=== PATIENT | female | born 1935 | race Hispanic/Latino ===

== ENCOUNTER 2017-11-09 10:37 | Emergency (ER) | payer MEDICARE ==
[~2017-11-09 10:37] MED LIST: AMLO10TA2 PO; ASPI-555 PO; CARV12.511 PO; CARV25TA77 PO; CHOL200012 PO; DOCU240C25 PO; FURO20TA4 PO; LACT1CAP72 PO; LATA2.5D2 OP; LOSA100T29 PO; MECL-111 PO; NITR0.4T50 SL; VITA100049 PO
[2017-11-09] MEDS ORDERED: KETOROLAC TROMETHAMINE 15MG/ML ONE (11:11)
[2017-11-09 11:25] LABS: APPEARANCE,URINE Clear (CLEAR); BILIRUBIN,URINE Negative (NEGATIVE); COLOR,URINE Yellow (YELLOW); GLUCOSE, URINE (UA) Negative (NEGATIVE); KETONES,URINE Negative (NEGATIVE); LEUKOCYTE ESTERASE ,URINE Trace (NEGATIVE); NITRATE,URINE Negative (NEGATIVE); OCCULT BLOOD,URINE Negative (NEGATIVE); PROTEIN,URINE Negative (NEGATIVE); UROBILINOGEN,URINE 0.2 mg/dL (0.2-1.0)
[2017-11-09 11:31] LABS: BACTERIA,URINE Rare /HPF (None Seen); RBC,URINE 0-1 /HPF (0-1); SQUAMOUS EPITHELIAL CELL,UR Rare /LPF (0-2); WBC,URINE 0-1 /HPF (0-1)
[2017-11-09 11:44] LABS: BASOPHILS % (AUTO) 1.4 % (0.0-5.0); EOSINOPHILS % (AUTO) 6.6 % (0.0-8.0); HEMATOCRIT 31.6 % (36-48); LYMPHOCYTES % (AUTO) 25.9 % (21.0-51.0); MEAN CORPUSCULAR HEMOGLOBIN 31.7 pg (27.0-33.0); MEAN CORPUSCULAR HGB CONC 34.6 g/dL (32.0-36.0); MEAN CORPUSCULAR VOLUME 91.6 fL (79-99); MONOCYTES % (AUTO) 6.8 % (3.0-13.0); NEUTROPHILS % (AUTO) 59.3 % (40.0-77.0); PLATELET COUNT (AUTO) 232 K/uL (130-400); RED BLOOD CELL COUNT(AUTO) 3.45 MIL/uL (4.00-5.50); RED CELL DISTRIBUTION WIDTH 14.3 % (11.0-15.5); WHITE BLOOD COUNT (AUTO) 7.6 K/uL (4.8-10.8)
[2017-11-09 11:54] LABS: CREATININE 1.4 mg/dL (0.5-1.5); POTASSIUM 4.1 mmol/L (3.5-5.1)
[2017-11-09] MEDS ORDERED: METHYLPREDNISOLONE SOD SUCC 125MG/2ML VIAL ONE (13:45)
[2017-11-09] MEDS ORDERED: ACETAMINOPHEN 325 MG TAB ONE (13:45)
== END 2017-11-09 14:24 | disposition home or self-care (01) ==
LOC: EDH 10:37
DX: G89.29 Other chronic pain (principal); M54.5 Low back pain; R10.9 Unspecified abdominal pain; E11.9 Type 2 diabetes mellitus without complications; I10 Essential (primary) hypertension; Z88.0 Allergy status to penicillin; Z88.6 Allergy status to analgesic agent; Z88.2 Allergy status to sulfonamides; Z88.1 Allergy status to other antibiotic agents; Z90.49 Acquired absence of other specified parts of digestive tract; Z90.710 Acquired absence of both cervix and uterus; Z98.890 Other specified postprocedural states
CPT/HCPCS: 36415; 72100; 80048; 81001; 85025; 96374; 96375; 99285; J1885; J2930

== ENCOUNTER → 2018-01-03 | Outpatient (CLI) | payer MEDICARE ==
[~2018-01-03] MED LIST changes: +ACET1TAB12 PO; +IOPAMIDOL-370 100 ML VIAL IV ONE; +LEVO250T2 PO; +LUBI24CA2 PO; +OMEP20CA10 PO; +SULF1TAB42 PO; +VIT1TABL75 PO
== END | disposition home or self-care (01) ==
LOC: RAH 08:36
PROVIDERS: ATTEND Internal Medicine Cardiovascular Disease
DX: I71.4 Abdominal aortic aneurysm, without rupture (principal); I72.3 Aneurysm of iliac artery; K55.1 Chronic vascular disorders of intestine; K44.9 Diaphragmatic hernia without obstruction or gangrene; N28.1 Cyst of kidney, acquired; K57.90 Diverticulosis of intestine, part unspecified, without perforation or abscess without bleeding; I70.90 Unspecified atherosclerosis
CPT/HCPCS: 74174; Q9967

== ENCOUNTER 2018-01-09 13:50 | Inpatient (IN) | payer MEDICARE ==
[~2018-01-09] VITALS: Ht 157.5 cm; Wt 80.7 kg
[~2018-01-09 13:50] MED LIST changes: -ACET1TAB12 PO; -IOPAMIDOL-370 100 ML VIAL IV ONE; -LEVO250T2 PO; -LUBI24CA2 PO; -OMEP20CA10 PO; -SULF1TAB42 PO; -VIT1TABL75 PO
[2018-01-09 15:01] LABS: BASOPHILS % (AUTO) 0.1 % (0.0-5.0); HEMATOCRIT 35.1 % (36-48); LYMPHOCYTES % (AUTO) 13.2 % (21.0-51.0); MEAN CORPUSCULAR HEMOGLOBIN 30.8 pg (27.0-33.0); MEAN CORPUSCULAR HGB CONC 33.9 g/dL (32.0-36.0); MEAN CORPUSCULAR VOLUME 90.8 fL (79-99); MONOCYTES % (AUTO) 3.3 % (3.0-13.0); NEUTROPHILS % (AUTO) 83.4 % (40.0-77.0); PLATELET COUNT (AUTO) 244 K/uL (130-400); RED BLOOD CELL COUNT(AUTO) 3.86 MIL/uL (4.00-5.50); RED CELL DISTRIBUTION WIDTH 13.6 % (11.0-15.5); WHITE BLOOD COUNT (AUTO) 12.7 K/uL (4.8-10.8)
[2018-01-09 15:12] LABS: INR 0.94 (0.85-1.15); PARTIAL THROMBOPLASTIN TIME 23.8 SEC (26.3-35.5); PROTHROMBIN TIME 9.9 SEC (9.6-11.6)
[2018-01-09 15:13] LABS: CREATININE 1.2 mg/dL (0.5-1.5); POTASSIUM 4.3 mmol/L (3.5-5.1)
[2018-01-09 17:03] LABS: BILIRUBIN,URINE Negative (NEGATIVE); COLOR,URINE Yellow (YELLOW); GLUCOSE, URINE (UA) Negative (NEGATIVE); KETONES,URINE Negative (NEGATIVE); LEUKOCYTE ESTERASE ,URINE Trace (NEGATIVE); NITRATE,URINE Negative (NEGATIVE); OCCULT BLOOD,URINE Negative (NEGATIVE); PH,URINE 5.5 (5.0-8.0); PROTEIN,URINE Trace (NEGATIVE); UROBILINOGEN,URINE 0.2 mg/dL (0.2-1.0)
[2018-01-09 17:07] LABS: APPEARANCE,URINE SLIGHTLY CLOUDY (CLEAR)
[2018-01-09 17:15] LABS: BACTERIA,URINE Few /HPF (None Seen); RBC,URINE 0-1 /HPF (0-1)
[2018-01-09 17:16] LABS: SQUAMOUS EPITHELIAL CELL,UR Few /HPF (0-2)
[2018-01-09] MEDS ORDERED: SODIUM CHLORIDE 0.9% 10 ML VIAL IVP SCH (19:00)
[2018-01-09] MEDS ORDERED: ACETAMINOPHEN 325 MG TAB PO PRN ×2 (19:00)
[2018-01-09] MEDS ORDERED: LACTULOSE 20 GM/30 ML UDCUP PO PRN (19:00)
[2018-01-09] MEDS ORDERED: NITROGLYCERIN 0.4 MG SL TAB SL PRN (19:00)
[2018-01-09 19:24] VITALS: BP 146/61
[2018-01-09] MEDS ORDERED: CARV12.511 PO (21:22)
[2018-01-09] MEDS ORDERED: OMEP20CA10 PO (21:28)
[2018-01-09] MEDS ORDERED: MECLIZINE HCL 25 MG TABLET PO PRN (21:45)
[2018-01-09] MEDS: SODIUM CHLORIDE 0.9% 100 ML IV SCH (22:15)
[2018-01-09] MEDS ORDERED: CARVEDILOL 12.5 MG TABLET PO ONE (22:20)
[2018-01-09] MEDS ORDERED: SODIUM CHLORIDE 0.9% 1000ML 1,000 ML IV ONE (22:21)
[2018-01-09] MEDS: CARVEDILOL 12.5 MG TABLET PO SCH (22:21)
[2018-01-10] VITALS (18 sets, daily range): BP systolic 103–175; BP diastolic 39–61
[2018-01-10 04:20] LABS: MAGNESIUM 2.2 mg/dL (1.80-2.40)
[2018-01-10] MEDS ORDERED: HYDRALAZINE HCL 20 MG/ML VIAL IV PRN (07:30)
[2018-01-10] MEDS ORDERED: ALPRAZOLAM 0.5 MG TABLET PO SCH (07:30)
[2018-01-10] MEDS: DOCUSATE CALCIUM 240 MG CAP PO SCH (08:32)
[2018-01-10] MEDS: CARVEDILOL 12.5 MG TABLET PO SCH ×2 (08:32→20:50)
[2018-01-10] MEDS: AMLODIPINE-BENAZEPRIL 5-10 MG PO SCH (08:32)
[2018-01-10] MEDS: LOSARTAN 100 MG TABLET PO SCH (08:32)
[2018-01-10] MEDS: FUROSEMIDE 20 MG TABLET PO SCH (08:32)
[2018-01-10] MEDS: ASPIRIN 81 MG EC TAB PO SCH (08:32)
[2018-01-10] MEDS: LACTOBACILLUS RHAMNOSUS GG 1 EACH CAP.SPRINK PO SCH (08:35)
[2018-01-10] MEDS ORDERED: ISOVUE-300 100 ML VIAL IV ONE (14:15)
[2018-01-10] MEDS ORDERED: HEPARIN SODIUM 1000UNIT/ML 10ML VIAL ONE ×3 (14:15→17:02)
[2018-01-10] MEDS ORDERED: ONDANSETRON HCL 4 MG/2 ML VIAL ONE (14:49)
[2018-01-10] MEDS ORDERED: LIDOCAINE PF 2% 5ML ABBOJECT ONE (14:49)
[2018-01-10] MEDS ORDERED: GLYCOPYRROLATE 0.2 MG/ML 5 ML VIAL ONE (14:49)
[2018-01-10] MEDS ORDERED: FENTANYL CITRATE PF 50 MCG/1 ML 2ML VIAL ONE ×2 (14:50)
[2018-01-10] MEDS ORDERED: PROPOFOL 10 MG/ML 20ML VIAL IV ONE (14:50)
[2018-01-10] MEDS ORDERED: MIDAZOLAM HCL 1 MG/ML 2ML VIAL ONE (14:50)
[2018-01-10] MEDS ORDERED: DEXAMETHASONE SOD PHOSPHATE 10MG/ML 1ML VIAL ONE (14:50)
[2018-01-10] MEDS ORDERED: CLINDAMYCIN 600 MG/D5% WATER 50 ML IV ONE (15:04)
[2018-01-10] MEDS ORDERED: TEMAZEPAM 30 MG CAP PO PRN (18:00)
[2018-01-10] MEDS ORDERED: ONDANSETRON HCL 4 MG/2 ML VIAL IV PRN (18:00)
[2018-01-10] MEDS ORDERED: SODIUM CHLORIDE 0.9% 1000ML 1,000 ML IV SCH (18:00)
[2018-01-10] MEDS: ACETAMINOPHEN-CODEINE 300/30MG TAB PO PRN ×2 (19:34→21:58)
[2018-01-10] MEDS: CLINDAMYCIN 300 MG/D5W 50 ML 50 ML IV SCH (21:47)
[2018-01-10] MEDS: LATANOPROST 2.5 ML DROPS OU SCH (21:47)
[2018-01-10] MEDS: SODIUM CHLORIDE 0.9% 100 ML IV SCH (21:47)
[2018-01-11] VITALS (14 sets, daily range): BP systolic 105–156; BP diastolic 37–64
[2018-01-11] MEDS: ACETAMINOPHEN-CODEINE 300/30MG TAB PO PRN ×3 (02:10→17:42)
[2018-01-11] MEDS: CLINDAMYCIN 300 MG/D5W 50 ML 50 ML IV SCH (03:10)
[2018-01-11 05:24] LABS: HEMATOCRIT 29.8 % (36-48); MEAN CORPUSCULAR HEMOGLOBIN 32.3 pg (27.0-33.0); MEAN CORPUSCULAR HGB CONC 35.2 g/dL (32.0-36.0); MEAN CORPUSCULAR VOLUME 91.9 fL (79-99); PLATELET COUNT (AUTO) 214 K/uL (130-400); RED BLOOD CELL COUNT(AUTO) 3.24 MIL/uL (4.00-5.50); RED CELL DISTRIBUTION WIDTH 13.9 % (11.0-15.5)
[2018-01-11 05:36] LABS: CREATININE 1.1 mg/dL (0.5-1.5); POTASSIUM 4.1 mmol/L (3.5-5.1)
[2018-01-11 05:42] LABS: BAND NEUTROPHILS % (MANUAL) 14 % (0-2); EOSINOPHILS % (MANUAL) 2 % (1-6); LYMPHOCYTES % (MANUAL) 21 % (22-44); MONOCYTES % (MANUAL) 7 % (2-9); SEGMENTED NEUTROPHILS % 56 % (40-70)
[2018-01-11 05:43] LABS: MAN.DIFF COMMENT-IMPRESSION MANUAL DIFFERENTIAL; PLATELET MORPHOLOGY COMMENT ADEQUATE
[2018-01-11] MEDS: CARVEDILOL 12.5 MG TABLET PO SCH (07:48)
[2018-01-11] MEDS: DOCUSATE CALCIUM 240 MG CAP PO SCH (07:53)
[2018-01-11] MEDS: ASPIRIN 81 MG EC TAB PO SCH (07:56)
[2018-01-11] MEDS: FUROSEMIDE 20 MG TABLET PO SCH (07:56)
[2018-01-11] MEDS: LOSARTAN 100 MG TABLET PO SCH (07:56)
[2018-01-11] MEDS: LACTOBACILLUS RHAMNOSUS GG 1 EACH CAP.SPRINK PO SCH (09:13)
[2018-01-11] MEDS: AMLODIPINE-BENAZEPRIL 5-10 MG PO SCH (09:13)
[2018-01-11] MEDS ORDERED: PHENOL 177 ML BOTTLE PO PRN (14:15)
[2018-01-11] MEDS: LATANOPROST 2.5 ML DROPS OU SCH (21:51)
[2018-01-12 04:01] VITALS: BP 145/43
[2018-01-12 04:05] LABS: HEMATOCRIT 29.5 % (36-48); MEAN CORPUSCULAR HEMOGLOBIN 31.2 pg (27.0-33.0); MEAN CORPUSCULAR HGB CONC 34.2 g/dL (32.0-36.0); MEAN CORPUSCULAR VOLUME 91.1 fL (79-99); PLATELET COUNT (AUTO) 174 K/uL (130-400); RED BLOOD CELL COUNT(AUTO) 3.24 MIL/uL (4.00-5.50); RED CELL DISTRIBUTION WIDTH 13.9 % (11.0-15.5); WHITE BLOOD COUNT (AUTO) 7.7 K/uL (4.8-10.8)
[2018-01-12 05:19] LABS: LYMPHOCYTES % (MANUAL) 28 % (22-44); MONOCYTES % (MANUAL) 8 % (2-9); SEGMENTED NEUTROPHILS % 64 % (40-70)
[2018-01-12 05:20] LABS: MAN.DIFF COMMENT-IMPRESSION MANUAL DIFFERENTIAL; PLATELET MORPHOLOGY COMMENT ADEQUATE
[2018-01-12 07:19] VITALS: BP 141/45
[2018-01-12] MEDS: AMLODIPINE-BENAZEPRIL 5-10 MG PO SCH (08:49)
[2018-01-12] MEDS: DOCUSATE CALCIUM 240 MG CAP PO SCH (08:49)
[2018-01-12] MEDS: LOSARTAN 100 MG TABLET PO SCH (08:51)
[2018-01-12] MEDS: FUROSEMIDE 20 MG TABLET PO SCH (08:51)
[2018-01-12] MEDS: LACTOBACILLUS RHAMNOSUS GG 1 EACH CAP.SPRINK PO SCH (08:51)
[2018-01-12] MEDS: ASPIRIN 81 MG EC TAB PO SCH (08:51)
[2018-01-12] MEDS: ACETAMINOPHEN-CODEINE 300/30MG TAB PO PRN (09:01)
[2018-01-12 11:15] VITALS: BP 140/51
== END 2018-01-12 14:20 | disposition home or self-care (01) | DRG 269 ==
LOC: EDH 13:50 → EDHIP 18:05 → 2AH 18:40 → 2BH 01-10 18:04 → 2AH 01-11 13:55
PROVIDERS: ADMIT Internal Medicine Nephrology; ATTEND Internal Medicine Nephrology
PROC: 04V03DZ Restriction of Abdominal Aorta with Intraluminal Device, Percutaneous Approach (ICD-10-PCS; principal; 2018-01-10)
PROC: 047D3ZZ Dilation of Left Common Iliac Artery, Percutaneous Approach (ICD-10-PCS; 2018-01-10)
PROC: B4101ZZ Fluoroscopy of Abdominal Aorta using Low Osmolar Contrast (ICD-10-PCS; 2018-01-10)
DX: I71.3 Abdominal aortic aneurysm, ruptured (principal); E11.21 Type 2 diabetes mellitus with diabetic nephropathy; E11.51 Type 2 diabetes mellitus with diabetic peripheral angiopathy without gangrene; D64.9 Anemia, unspecified; E11.22 Type 2 diabetes mellitus with diabetic chronic kidney disease; E55.9 Vitamin D deficiency, unspecified; E78.00 Pure hypercholesterolemia, unspecified; E78.5 Hyperlipidemia, unspecified; E89.0 Postprocedural hypothyroidism; F41.9 Anxiety disorder, unspecified; I12.9 Hypertensive chronic kidney disease with stage 1 through stage 4 chronic kidney disease, or unspecified chronic kidney disease; I25.10 Atherosclerotic heart disease of native coronary artery without angina pectoris; I35.9 Nonrheumatic aortic valve disorder, unspecified; J44.9 Chronic obstructive pulmonary disease, unspecified; M19.90 Unspecified osteoarthritis, unspecified site; N18.3 Chronic kidney disease, stage 3 (moderate); N28.1 Cyst of kidney, acquired; Z86.19 Personal history of other infectious and parasitic diseases; Z86.79 Personal history of other diseases of the circulatory system; Z90.710 Acquired absence of both cervix and uterus; Z95.1 Presence of aortocoronary bypass graft; Z95.2 Presence of prosthetic heart valve; Z98.49 Cataract extraction status, unspecified eye; Z88.5 Allergy status to narcotic agent; Z88.3 Allergy status to other anti-infective agents; Z88.0 Allergy status to penicillin; Z88.8 Allergy status to other drugs, medicaments and biological substances; Z90.49 Acquired absence of other specified parts of digestive tract
CPT/HCPCS: 34705; 34712; 34713; 36415; 80048; 81001; 82948; 83735; 84100; 85025; 85347; 85610; 85730; 86850; 86900; 86901; 86922; A4344; C1725; C1760; C1769; C1887; C1894; J1100; J1644; J2001; J2250; J2405; J2704; J3010; J3490; J7030; Q9967

== ENCOUNTER 2018-01-15 08:39 | Inpatient (IN) | payer MEDICARE ==
[~2018-01-15] VITALS: Ht 188 cm; Wt 79.7 kg
[~2018-01-15 08:39] MED LIST changes: -CARV25TA77 PO; +OMEP20CA10 PO
[2018-01-15 09:25] LABS: BASOPHILS % (AUTO) 0.4 % (0.0-5.0); EOSINOPHILS % (AUTO) 4.5 % (0.0-8.0); HEMATOCRIT 31.5 % (36-48); LYMPHOCYTES % (AUTO) 15.9 % (21.0-51.0); MEAN CORPUSCULAR HEMOGLOBIN 32.3 pg (27.0-33.0); MEAN CORPUSCULAR HGB CONC 35.3 g/dL (32.0-36.0); MEAN CORPUSCULAR VOLUME 91.3 fL (79-99); MONOCYTES % (AUTO) 7.5 % (3.0-13.0); NEUTROPHILS % (AUTO) 71.7 % (40.0-77.0); PLATELET COUNT (AUTO) 294 K/uL (130-400); RED BLOOD CELL COUNT(AUTO) 3.45 MIL/uL (4.00-5.50); RED CELL DISTRIBUTION WIDTH 13.4 % (11.0-15.5); WHITE BLOOD COUNT (AUTO) 13.7 K/uL (4.8-10.8)
[2018-01-15 10:20] LABS: CREATININE 1.4 mg/dL (0.5-1.5); POTASSIUM 3.3 mmol/L (3.5-5.1)
[2018-01-15 10:24] LABS: BILIRUBIN,TOTAL 0.8 mg/dL (0.2-1.0); TOTAL PROTEIN, SERUM 7.4 g/dL (6.0-8.3)
[2018-01-15 12:11] LABS: APPEARANCE,URINE Clear (CLEAR); BILIRUBIN,URINE Negative (NEGATIVE); COLOR,URINE Yellow (YELLOW); GLUCOSE, URINE (UA) Negative (NEGATIVE); KETONES,URINE Trace mg/dL (NEGATIVE); LEUKOCYTE ESTERASE ,URINE Negative (NEGATIVE); NITRATE,URINE Negative (NEGATIVE); OCCULT BLOOD,URINE Negative (NEGATIVE); PH,URINE 6.5 (5.0-8.0); PROTEIN,URINE POS 1+ (NEGATIVE)
[2018-01-15 12:20] LABS: BACTERIA,URINE Many /HPF (None Seen); RBC,URINE 0-1 /HPF (0-1); SQUAMOUS EPITHELIAL CELL,UR Rare /HPF (0-2)
[2018-01-15] MEDS ORDERED: LUBI24CA2 PO (15:27)
[2018-01-15] MEDS ORDERED: ACET1TAB12 PO (15:27)
[2018-01-15] MEDS ORDERED: VIT1TABL75 PO (15:27)
[2018-01-15] MEDS ORDERED: MECLIZINE HCL 25 MG TABLET PO SCH (15:30)
[2018-01-15] MEDS ORDERED: NITROGLYCERIN 0.4 MG SL TAB SL PRN (15:30)
[2018-01-15 15:51] VITALS: BP 142/54
[2018-01-15] MEDS ORDERED: ACETAMINOPHEN 325 MG TAB PO PRN (18:30)
[2018-01-15] MEDS ORDERED: ONDANSETRON HCL MDV 20ML 2 MG/ML VIAL IVP PRN (18:30)
[2018-01-15 19:41] VITALS: BP 170/64
[2018-01-15] MEDS ORDERED: SODIUM CHLORIDE 0.9% 250 ML IV ONE (20:57)
[2018-01-15] MEDS: LUBIPROSTONE 24 MCG CAP PO SCH (21:00)
[2018-01-15] MEDS: LEVOFLOXACIN 500 MG/D5W 100 ML 100 ML IV SCH (21:11)
[2018-01-15] MEDS: LATANOPROST 2.5 ML DROPS OU SCH (21:22)
[2018-01-15] MEDS: CARVEDILOL 12.5 MG TABLET PO SCH (21:23)
[2018-01-15] MEDS: ACETAMINOPHEN-CODEINE 300/30MG TAB PO PRN (21:29)
[2018-01-15] MEDS: LINEZOLID 600 MG/ISO-OSM 300 ML IV SCH (23:18)
[2018-01-15 23:22] VITALS: BP 111/45
[2018-01-16 03:53] VITALS: BP 143/60
[2018-01-16 03:57] LABS: BASOPHILS % (AUTO) 0.7 % (0.0-5.0); HEMATOCRIT 26.2 % (36-48); LYMPHOCYTES % (AUTO) 14.7 % (21.0-51.0); MEAN CORPUSCULAR HEMOGLOBIN 31.4 pg (27.0-33.0); MEAN CORPUSCULAR HGB CONC 34.8 g/dL (32.0-36.0); MEAN CORPUSCULAR VOLUME 90.4 fL (79-99); MONOCYTES % (AUTO) 11.9 % (3.0-13.0); NEUTROPHILS % (AUTO) 65.7 % (40.0-77.0); PLATELET COUNT (AUTO) 251 K/uL (130-400); RED CELL DISTRIBUTION WIDTH 13.1 % (11.0-15.5); WHITE BLOOD COUNT (AUTO) 8.4 K/uL (4.8-10.8)
[2018-01-16 04:16] LABS: CREATININE 1.3 mg/dL (0.5-1.5); MAGNESIUM 2.1 mg/dL (1.80-2.40); POTASSIUM 3.7 mmol/L (3.5-5.1)
[2018-01-16] MEDS: ACETAMINOPHEN-CODEINE 300/30MG TAB PO PRN (06:25)
[2018-01-16 07:00] VITALS: BP 152/56
[2018-01-16] MEDS: LACTOBACILLUS RHAMNOSUS GG 1 EACH CAP.SPRINK PO SCH (08:51)
[2018-01-16] MEDS: AMLODIPINE BESYLATE 5 MG TAB PO SCH (08:51)
[2018-01-16] MEDS: VITAMIN B COMPLEX 1 CAPSULE PO SCH (08:52)
[2018-01-16] MEDS: LOSARTAN 100 MG TABLET PO SCH (08:52)
[2018-01-16] MEDS: CARVEDILOL 12.5 MG TABLET PO SCH ×2 (08:52→20:38)
[2018-01-16] MEDS: FUROSEMIDE 20 MG TABLET PO SCH (08:52)
[2018-01-16] MEDS: PANTOPRAZOLE SODIUM 40 MG TABLET.DR PO SCH (08:52)
[2018-01-16] MEDS: VITAMIN E 400 UNIT CAPSULE PO SCH (08:52)
[2018-01-16] MEDS: ASPIRIN 81 MG EC TAB PO SCH (08:52)
[2018-01-16] MEDS: LUBIPROSTONE 24 MCG CAP PO SCH ×2 (08:53→20:19)
[2018-01-16] MEDS: DOCUSATE CALCIUM 240 MG CAP PO SCH (08:53)
[2018-01-16] MEDS: CHOLECALCIFEROL 1000 UNIT PO SCH (08:53)
[2018-01-16] MEDS: LATANOPROST 2.5 ML DROPS OU SCH ×2 (08:56→20:36)
[2018-01-16] MEDS: LINEZOLID 600 MG/ISO-OSM 300 ML IV SCH ×2 (09:30→20:32)
[2018-01-16 11:00] VITALS: BP 140/66
[2018-01-16] MEDS ORDERED: IOPAMIDOL-370 100 ML VIAL IV ONE (12:31)
[2018-01-16] MEDS: SODIUM CHLORIDE 0.9% 1000ML 1,000 ML IV SCH (14:20)
[2018-01-16] MEDS: HYDROMORPHONE HCL 0.5 MG/0.5 ML ML IVP PRN ×2 (14:20→20:50)
[2018-01-16 16:00] VITALS: BP 166/52
[2018-01-16 19:37] VITALS: BP 120/31
[2018-01-17] VITALS (8 sets, daily range): BP systolic 107–139; BP diastolic 38–65
[2018-01-17] MEDS: SODIUM CHLORIDE 0.9% 1000ML 1,000 ML IV SCH (03:20)
[2018-01-17 03:26] LABS: HEMATOCRIT 23.8 % (36-48); MEAN CORPUSCULAR HEMOGLOBIN 32.3 pg (27.0-33.0); MEAN CORPUSCULAR HGB CONC 35.8 g/dL (32.0-36.0); MEAN CORPUSCULAR VOLUME 90.2 fL (79-99); PLATELET COUNT (AUTO) 256 K/uL (130-400); RED BLOOD CELL COUNT(AUTO) 2.64 MIL/uL (4.00-5.50); WHITE BLOOD COUNT (AUTO) 7.1 K/uL (4.8-10.8)
[2018-01-17 03:37] LABS: CREATININE 1.2 mg/dL (0.5-1.5); POTASSIUM 3.5 mmol/L (3.5-5.1)
[2018-01-17] MEDS: HYDROMORPHONE HCL 0.5 MG/0.5 ML ML IVP PRN ×2 (06:23→13:31)
[2018-01-17] MEDS ORDERED: SULF1TAB42 PO (07:10)
[2018-01-17] MEDS: FUROSEMIDE 20 MG TABLET PO SCH (08:37)
[2018-01-17] MEDS: PANTOPRAZOLE SODIUM 40 MG TABLET.DR PO SCH (08:37)
[2018-01-17] MEDS: VITAMIN E 400 UNIT CAPSULE PO SCH (08:37)
[2018-01-17] MEDS: LUBIPROSTONE 24 MCG CAP PO SCH ×3 (08:37→21:03)
[2018-01-17] MEDS: LOSARTAN 100 MG TABLET PO SCH (08:38)
[2018-01-17] MEDS: DOCUSATE CALCIUM 240 MG CAP PO SCH ×2 (08:38→09:00)
[2018-01-17] MEDS: ASPIRIN 81 MG EC TAB PO SCH (08:38)
[2018-01-17] MEDS: CARVEDILOL 12.5 MG TABLET PO SCH ×2 (08:38→21:03)
[2018-01-17] MEDS: LACTOBACILLUS RHAMNOSUS GG 1 EACH CAP.SPRINK PO SCH (08:38)
[2018-01-17] MEDS: VITAMIN B COMPLEX 1 CAPSULE PO SCH (08:38)
[2018-01-17] MEDS: LATANOPROST 2.5 ML DROPS OU SCH ×2 (08:38→21:04)
[2018-01-17] MEDS: AMLODIPINE BESYLATE 5 MG TAB PO SCH (08:38)
[2018-01-17] MEDS: LINEZOLID 600 MG/ISO-OSM 300 ML IV SCH ×2 (08:42→21:04)
[2018-01-17] MEDS: CHOLECALCIFEROL 1000 UNIT PO SCH (08:50)
[2018-01-17] MEDS ORDERED: DEXTROSE 50%-WATER 50 ML DISP.SYRIN IV PRN (11:45)
[2018-01-17] MEDS ORDERED: GLUCAGON 1MG KIT 1 MG ML IM PRN (11:45)
[2018-01-17] MEDS ORDERED: LORAZEPAM 2 MG/ML 1 ML VIAL IVP SCH (12:45)
[2018-01-17] MEDS: INSULIN HUMULIN R 100 UNIT/ML 3ML SQ SCH ×2 (16:08→21:00)
[2018-01-17 20:38] LABS: OCCULT BLOOD STOOL SINGLE ONLY POSITIVE (NEGATIVE)
[2018-01-17] MEDS: LEVOFLOXACIN 500 MG/D5W 100 ML 100 ML IV SCH (21:04)
[2018-01-18] MEDS: HYDROMORPHONE HCL 0.5 MG/0.5 ML ML IVP PRN ×3 (01:10→20:10)
[2018-01-18 04:00] VITALS: BP 129/50
[2018-01-18 04:23] LABS: HEMATOCRIT 24.1 % (36-48); MEAN CORPUSCULAR HEMOGLOBIN 30.5 pg (27.0-33.0); MEAN CORPUSCULAR HGB CONC 33.5 g/dL (32.0-36.0); PLATELET COUNT (AUTO) 297 K/uL (130-400); RED BLOOD CELL COUNT(AUTO) 2.65 MIL/uL (4.00-5.50); RED CELL DISTRIBUTION WIDTH 12.8 % (11.0-15.5); WHITE BLOOD COUNT (AUTO) 6.7 K/uL (4.8-10.8)
[2018-01-18 04:40] LABS: CREATININE 1.2 mg/dL (0.5-1.5); POTASSIUM 3.8 mmol/L (3.5-5.1)
[2018-01-18] MEDS: INSULIN HUMULIN R 100 UNIT/ML 3ML SQ SCH ×4 (06:19→21:00)
[2018-01-18 07:00] VITALS: BP 130/49
[2018-01-18] MEDS: PANTOPRAZOLE SODIUM 40 MG TABLET.DR PO SCH (08:35)
[2018-01-18] MEDS: VITAMIN E 400 UNIT CAPSULE PO SCH (08:35)
[2018-01-18] MEDS: LUBIPROSTONE 24 MCG CAP PO SCH ×2 (08:35→20:11)
[2018-01-18] MEDS: LOSARTAN 100 MG TABLET PO SCH (08:36)
[2018-01-18] MEDS: LACTOBACILLUS RHAMNOSUS GG 1 EACH CAP.SPRINK PO SCH (08:36)
[2018-01-18] MEDS: VITAMIN B COMPLEX 1 CAPSULE PO SCH (08:36)
[2018-01-18] MEDS: DOCUSATE CALCIUM 240 MG CAP PO SCH (08:36)
[2018-01-18] MEDS: ASPIRIN 81 MG EC TAB PO SCH (08:36)
[2018-01-18] MEDS: AMLODIPINE BESYLATE 5 MG TAB PO SCH (08:36)
[2018-01-18] MEDS: FUROSEMIDE 20 MG TABLET PO SCH (08:37)
[2018-01-18] MEDS: CARVEDILOL 12.5 MG TABLET PO SCH ×2 (08:37→20:10)
[2018-01-18] MEDS: CHOLECALCIFEROL 1000 UNIT PO SCH (08:38)
[2018-01-18] MEDS: LATANOPROST 2.5 ML DROPS OU SCH ×2 (08:38→20:11)
[2018-01-18] MEDS: LINEZOLID 600 MG/ISO-OSM 300 ML IV SCH (09:12)
[2018-01-18 11:00] VITALS: BP 114/45
[2018-01-18] MEDS ORDERED: LEVOFLOXACIN 500 MG TABLET PO SCH (12:30)
[2018-01-18] MEDS: ACETAMINOPHEN-CODEINE 300/30MG TAB PO PRN (13:07)
[2018-01-18 16:00] VITALS: BP 124/39
[2018-01-18 19:23] VITALS: BP 120/80
[2018-01-19] VITALS: BP 130/54
[2018-01-19] MEDS: HYDROMORPHONE HCL 0.5 MG/0.5 ML ML IVP PRN ×3 (02:16→16:41)
[2018-01-19 03:53] LABS: MEAN CORPUSCULAR HEMOGLOBIN 32.3 pg (27.0-33.0); MEAN CORPUSCULAR HGB CONC 36.1 g/dL (32.0-36.0); MEAN CORPUSCULAR VOLUME 89.5 fL (79-99); PLATELET COUNT (AUTO) 305 K/uL (130-400); RED BLOOD CELL COUNT(AUTO) 2.69 MIL/uL (4.00-5.50); RED CELL DISTRIBUTION WIDTH 12.8 % (11.0-15.5); WHITE BLOOD COUNT (AUTO) 7.1 K/uL (4.8-10.8)
[2018-01-19 04:00] VITALS: BP 113/54
[2018-01-19 04:01] LABS: BAND NEUTROPHILS % (MANUAL) 3 % (0-2); EOSINOPHILS % (MANUAL) 2 % (1-6); LYMPHOCYTES % (MANUAL) 5 % (22-44); MONOCYTES % (MANUAL) 6 % (2-9); SEGMENTED NEUTROPHILS % 84 % (40-70)
[2018-01-19 04:02] LABS: MAN.DIFF COMMENT-IMPRESSION MANUAL DIFFERENTIAL; PLATELET MORPHOLOGY COMMENT ADEQUATE
[2018-01-19 04:21] LABS: % IRON SATURATION 16.3 % (22-44)
[2018-01-19] MEDS: INSULIN HUMULIN R 100 UNIT/ML 3ML SQ SCH ×4 (06:33→20:49)
[2018-01-19 07:00] VITALS: BP 129/47
[2018-01-19] MEDS: VITAMIN B COMPLEX 1 CAPSULE PO SCH (08:56)
[2018-01-19] MEDS: LEVOFLOXACIN 500 MG TABLET PO SCH (08:56)
[2018-01-19] MEDS: FUROSEMIDE 20 MG TABLET PO SCH (08:56)
[2018-01-19] MEDS: LOSARTAN 100 MG TABLET PO SCH (08:57)
[2018-01-19] MEDS: AMLODIPINE BESYLATE 5 MG TAB PO SCH (08:57)
[2018-01-19] MEDS: CARVEDILOL 12.5 MG TABLET PO SCH ×2 (08:57→20:51)
[2018-01-19] MEDS: ASPIRIN 81 MG EC TAB PO SCH (08:57)
[2018-01-19] MEDS: LACTOBACILLUS RHAMNOSUS GG 1 EACH CAP.SPRINK PO SCH (08:57)
[2018-01-19] MEDS: VITAMIN E 400 UNIT CAPSULE PO SCH (08:57)
[2018-01-19] MEDS: DOCUSATE CALCIUM 240 MG CAP PO SCH (08:57)
[2018-01-19] MEDS: PANTOPRAZOLE SODIUM 40 MG TABLET.DR PO SCH (08:57)
[2018-01-19] MEDS: LATANOPROST 2.5 ML DROPS OU SCH ×2 (08:58→20:52)
[2018-01-19] MEDS: CHOLECALCIFEROL 1000 UNIT PO SCH (09:00)
[2018-01-19] MEDS: LUBIPROSTONE 24 MCG CAP PO SCH ×2 (09:03→20:52)
[2018-01-19 11:00] VITALS: BP 112/45
[2018-01-19] MEDS ORDERED: COMPOUND IV MISC 1 EACH IVSOLN MISC PRN (11:45)
[2018-01-19 16:00] VITALS: BP 122/45
[2018-01-19 19:44] VITALS: BP 111/48
[2018-01-20 00:07] VITALS: BP 120/46
[2018-01-20] MEDS: HYDROMORPHONE HCL 0.5 MG/0.5 ML ML IVP PRN ×2 (01:41→09:33)
[2018-01-20 04:00] LABS: HEMATOCRIT 26.4 % (36-48); MEAN CORPUSCULAR HEMOGLOBIN 30.8 pg (27.0-33.0); MEAN CORPUSCULAR VOLUME 90.6 fL (79-99); PLATELET COUNT (AUTO) 383 K/uL (130-400); RED BLOOD CELL COUNT(AUTO) 2.92 MIL/uL (4.00-5.50); RED CELL DISTRIBUTION WIDTH 13.3 % (11.0-15.5); WHITE BLOOD COUNT (AUTO) 8.1 K/uL (4.8-10.8)
[2018-01-20 04:03] VITALS: BP 127/50
[2018-01-20 04:08] LABS: EOSINOPHILS % (MANUAL) 3 % (1-6); LYMPHOCYTES % (MANUAL) 9 % (22-44); MAN.DIFF COMMENT-IMPRESSION MANUAL DIFFERENTIAL; MONOCYTES % (MANUAL) 6 % (2-9); PLATELET MORPHOLOGY COMMENT ADEQUATE; SEGMENTED NEUTROPHILS % 82 % (40-70)
[2018-01-20 04:14] LABS: CREATININE 1.5 mg/dL (0.5-1.5); POTASSIUM 3.6 mmol/L (3.5-5.1)
[2018-01-20] MEDS: INSULIN HUMULIN R 100 UNIT/ML 3ML SQ SCH ×2 (06:50→11:30)
[2018-01-20] MEDS: LACTOBACILLUS RHAMNOSUS GG 1 EACH CAP.SPRINK PO SCH (08:00)
[2018-01-20 08:36] VITALS: BP 139/43
[2018-01-20] MEDS: LATANOPROST 2.5 ML DROPS OU SCH (09:00)
[2018-01-20] MEDS ORDERED: IRON SUCROSE COMPLEX 100 MG in SODIUM CHLORIDE 0.9% 50 ML IV SCH (09:00)
[2018-01-20] MEDS: CHOLECALCIFEROL 1000 UNIT PO SCH (09:00)
[2018-01-20] MEDS: LUBIPROSTONE 24 MCG CAP PO SCH (09:00)
[2018-01-20] MEDS: ASPIRIN 81 MG EC TAB PO SCH (09:33)
[2018-01-20] MEDS: LOSARTAN 100 MG TABLET PO SCH (09:33)
[2018-01-20] MEDS: LEVOFLOXACIN 500 MG TABLET PO SCH (09:33)
[2018-01-20] MEDS: VITAMIN B COMPLEX 1 CAPSULE PO SCH (09:33)
[2018-01-20] MEDS: CARVEDILOL 12.5 MG TABLET PO SCH (09:34)
[2018-01-20] MEDS: PANTOPRAZOLE SODIUM 40 MG TABLET.DR PO SCH (09:34)
[2018-01-20] MEDS: AMLODIPINE BESYLATE 5 MG TAB PO SCH (09:34)
[2018-01-20] MEDS: DOCUSATE CALCIUM 240 MG CAP PO SCH (09:34)
[2018-01-20] MEDS: VITAMIN E 400 UNIT CAPSULE PO SCH (09:34)
[2018-01-20] MEDS: FUROSEMIDE 20 MG TABLET PO SCH (09:34)
[2018-01-20 12:09] VITALS: BP 117/56
[2018-01-20] MEDS ORDERED: LEVO250T2 PO (13:21)
[2018-01-20] MEDS: ACETAMINOPHEN-CODEINE 300/30MG TAB PO PRN (14:48)
== END 2018-01-20 15:54 | disposition home or self-care (01) | DRG 690 ==
LOC: EDH 08:39 → EDHIP 13:41 → 2AH 14:55
PROVIDERS: ADMIT Internal Medicine Nephrology; ATTEND Internal Medicine Nephrology
DX: N39.0 Urinary tract infection, site not specified (principal); E11.21 Type 2 diabetes mellitus with diabetic nephropathy; E11.51 Type 2 diabetes mellitus with diabetic peripheral angiopathy without gangrene; D64.9 Anemia, unspecified; N18.3 Chronic kidney disease, stage 3 (moderate); E11.22 Type 2 diabetes mellitus with diabetic chronic kidney disease; E66.9 Obesity, unspecified; E78.5 Hyperlipidemia, unspecified; E89.0 Postprocedural hypothyroidism; F41.9 Anxiety disorder, unspecified; G89.29 Other chronic pain; I12.9 Hypertensive chronic kidney disease with stage 1 through stage 4 chronic kidney disease, or unspecified chronic kidney disease; I25.10 Atherosclerotic heart disease of native coronary artery without angina pectoris; M19.90 Unspecified osteoarthritis, unspecified site; N28.1 Cyst of kidney, acquired; Z86.79 Personal history of other diseases of the circulatory system; Z87.440 Personal history of urinary (tract) infections; Z90.710 Acquired absence of both cervix and uterus; Z95.1 Presence of aortocoronary bypass graft; Z95.3 Presence of xenogenic heart valve; Z95.5 Presence of coronary angioplasty implant and graft; Z88.1 Allergy status to other antibiotic agents; Z88.0 Allergy status to penicillin; Z88.2 Allergy status to sulfonamides
CPT/HCPCS: 36415; 72148; 74174; 74176; 80048; 80053; 81001; 82270; 82948; 83540; 83550; 83735; 85025; 85027; 87040; 87046; 87088; 87186; 87205; 87324; 87804; J1170; J1756; J1956; J2020; J2060; J7030; Q9967

== ENCOUNTER 2018-05-21 10:00 | Emergency (ER) | payer MEDICARE ==
[~2018-05-21 10:00] MED LIST changes: +ACET1TAB12 PO; -AMLO10TA2 PO; +AMLO10TA6 PO; +LEVO250T2 PO; +LOSA100T20 PO; -LOSA100T29 PO; +LUBI24CA2 PO; +VIT1TABL75 PO
[2018-05-21] MEDS ORDERED: ASPIRIN 325 MG TABLET ONE (10:52)
[2018-05-21] MEDS ORDERED: LIDOCAINE HCL 2% VISCOUS 15 ML UDCUP ONE (11:01)
[2018-05-21] MEDS ORDERED: MAG HYDROX/AL HYDROX/SIMETH ES 30 ML SUSP UDCUP ONE (11:02)
== END 2018-05-21 12:13 | disposition home or self-care (01) ==
LOC: EDH 10:00
DX: R07.89 Other chest pain (principal); I13.0 Hypertensive heart and chronic kidney disease with heart failure and stage 1 through stage 4 chronic kidney disease, or unspecified chronic kidney disease; E11.22 Type 2 diabetes mellitus with diabetic chronic kidney disease; N18.9 Chronic kidney disease, unspecified; I50.1 Left ventricular failure, unspecified; K21.9 Gastro-esophageal reflux disease without esophagitis; Z88.0 Allergy status to penicillin; Z88.6 Allergy status to analgesic agent; Z88.2 Allergy status to sulfonamides; Z88.1 Allergy status to other antibiotic agents; Z90.710 Acquired absence of both cervix and uterus; Z90.49 Acquired absence of other specified parts of digestive tract; Z95.2 Presence of prosthetic heart valve
CPT/HCPCS: 36415; 71045; 83880; 84484; 93005

== ENCOUNTER → 2018-06-02 | Outpatient (CLI) | payer MEDICARE | END | disposition home or self-care (01) | LOC: RAH 13:37 | PROVIDERS: ATTEND Internal Medicine Cardiovascular Disease | DX: I51.7 Cardiomegaly (principal); I71.4 Abdominal aortic aneurysm, without rupture; N28.1 Cyst of kidney, acquired | CPT/HCPCS: 71250 ==

== ENCOUNTER → 2018-06-11 | Outpatient (CLI) | payer MEDICARE | END | disposition home or self-care (01) | LOC: SHCH 12:55 | PROVIDERS: ATTEND Internal Medicine Cardiovascular Disease | DX: I34.0 Nonrheumatic mitral (valve) insufficiency (principal); I11.9 Hypertensive heart disease without heart failure; E11.9 Type 2 diabetes mellitus without complications; Z79.4 Long term (current) use of insulin | CPT/HCPCS: 93306 ==

== ENCOUNTER → 2018-09-29 | Outpatient (CLI) | payer MEDICARE ==
[~2018-09-29] MED LIST changes: -AMLO10TA6 PO; +AMLO10TA7 PO; -LOSA100T20 PO; +LOSA100T58 PO
== END | disposition home or self-care (01) ==
LOC: OIH 08:50
PROVIDERS: ATTEND Internal Medicine Nephrology
DX: J20.9 Acute bronchitis, unspecified (principal); M47.815 Spondylosis without myelopathy or radiculopathy, thoracolumbar region
CPT/HCPCS: 71046

== ENCOUNTER → 2019-02-19 | Outpatient (CLI) | payer MEDICARE | END | disposition home or self-care (01) | LOC: SHCH 12:21 | PROVIDERS: ATTEND Internal Medicine Cardiovascular Disease | DX: I73.9 Peripheral vascular disease, unspecified (principal) | CPT/HCPCS: 93925 ==

== ENCOUNTER 2019-04-13 10:07 | Emergency (ER) | payer MEDICARE ==
[~2019-04-13 10:07] MED LIST changes: +OMEP-50 PO; -OMEP20CA10 PO
[2019-04-13] MEDS ORDERED: SODIUM CHLORIDE 0.9% 500ML 500 ML IV ONE (10:31)
[2019-04-13] MEDS ORDERED: ONDANSETRON HCL 4 MG/2 ML VIAL ONE (10:31)
[2019-04-13] MEDS ORDERED: KETOROLAC TROMETHAMINE 30MG/ML ONE (10:31)
[2019-04-13 10:32] LABS: BASOPHILS % (AUTO) 0.9 % (0.0-5.0); EOSINOPHILS % (AUTO) 2.5 % (0.0-8.0); HEMATOCRIT 37.3 % (36-48); LYMPHOCYTES % (AUTO) 17.1 % (21.0-51.0); MEAN CORPUSCULAR HEMOGLOBIN 30.6 pg (27.0-33.0); MEAN CORPUSCULAR HGB CONC 33.4 g/dL (32.0-36.0); MEAN CORPUSCULAR VOLUME 91.4 fL (79-99); MONOCYTES % (AUTO) 4.4 % (3.0-13.0); NEUTROPHILS % (AUTO) 75.1 % (40.0-77.0); PLATELET COUNT (AUTO) 202 K/uL (130-400); RED BLOOD CELL COUNT(AUTO) 4.08 MIL/uL (4.00-5.50); RED CELL DISTRIBUTION WIDTH 14.3 % (11.0-15.5); WHITE BLOOD COUNT (AUTO) 9.1 K/uL (4.8-10.8)
[2019-04-13 10:37] LABS: CREATININE 1.3 mg/dL (0.5-1.5); POTASSIUM 4.4 mmol/L (3.5-5.1)
[2019-04-13 10:38] LABS: INR 0.93 (0.85-1.15); PARTIAL THROMBOPLASTIN TIME 27.5 SEC (26.3-35.5); PROTHROMBIN TIME 9.8 SEC (9.6-11.6)
[2019-04-13 10:42] LABS: ALBUMIN 3.6 g/dL (3.5-5.0); BILIRUBIN,DIRECT 0.1 mg/dL (0.0-0.3); BILIRUBIN,TOTAL 0.4 mg/dL (0.2-1.0); TOTAL PROTEIN, SERUM 7.3 g/dL (6.0-8.3)
[2019-04-13 10:54] LABS: B-TYPE NATRIURETIC PEPTIDE 778 pg/mL (0-100)
[2019-04-13] MEDS ORDERED: LIDOCAINE HCL 2% VISCOUS 15 ML UDCUP ONE (10:58)
[2019-04-13] MEDS ORDERED: MAG HYDROX/AL HYDROX/SIMETH ES 30 ML SUSP UDCUP ONE (10:58)
[2019-04-13 11:48] LABS: APPEARANCE,URINE Clear (CLEAR); BILIRUBIN,URINE Negative (NEGATIVE); COLOR,URINE Yellow (YELLOW); GLUCOSE, URINE (UA) Negative (NEGATIVE); KETONES,URINE Negative (NEGATIVE); LEUKOCYTE ESTERASE ,URINE Negative (NEGATIVE); NITRATE,URINE Negative (NEGATIVE); OCCULT BLOOD,URINE Negative (NEGATIVE); PH,URINE 7.5 (5.0-8.0); PROTEIN,URINE POS 2+ mg/dL (NEGATIVE); UROBILINOGEN,URINE 0.2 mg/dL (0.2-1.0)
[2019-04-13 12:03] LABS: RBC,URINE 0-1 /HPF (0-1); WBC,URINE 0-1 /HPF (0-1)
[2019-04-13 12:04] LABS: BACTERIA,URINE Rare /HPF (None Seen); MUCUS,URINE Few LPF (None Seen); SQUAMOUS EPITHELIAL CELL,UR 0-2 /HPF (0-2)
== END 2019-04-13 14:27 | disposition home or self-care (01) ==
LOC: EDH 10:07
DX: K57.92 Diverticulitis of intestine, part unspecified, without perforation or abscess without bleeding (principal); E11.9 Type 2 diabetes mellitus without complications; I10 Essential (primary) hypertension; Z88.0 Allergy status to penicillin; Z88.5 Allergy status to narcotic agent; Z88.2 Allergy status to sulfonamides; Z88.1 Allergy status to other antibiotic agents
CPT/HCPCS: 36415; 71045; 74176; 80048; 80076; 81001; 83690; 83880; 84484; 85025; 85610; 85730; 93005; 96374; 96375; 99285; J1885; J2405; J7040

== ENCOUNTER → 2019-05-28 | Outpatient (CLI) | payer MEDICARE | END | disposition home or self-care (01) | LOC: RAH 11:46 | PROVIDERS: ATTEND Internal Medicine Cardiovascular Disease | DX: I25.10 Atherosclerotic heart disease of native coronary artery without angina pectoris (principal); I11.9 Hypertensive heart disease without heart failure; K44.9 Diaphragmatic hernia without obstruction or gangrene; N28.1 Cyst of kidney, acquired | CPT/HCPCS: 71250 ==

== ENCOUNTER 2019-06-03 08:24 | Emergency (ER) | payer MEDICARE ==
[2019-06-03] MEDS ORDERED: DEXAMETHASONE SOD PHOSPHATE 10MG/ML 1ML VIAL ONE (09:31)
== END 2019-06-03 10:15 | disposition home or self-care (01) ==
LOC: EDH 08:24
DX: M54.42 Lumbago with sciatica, left side (principal); M54.41 Lumbago with sciatica, right side; I38 Endocarditis, valve unspecified; I10 Essential (primary) hypertension; E11.9 Type 2 diabetes mellitus without complications; Z88.0 Allergy status to penicillin; Z88.1 Allergy status to other antibiotic agents; Z88.6 Allergy status to analgesic agent; Z88.2 Allergy status to sulfonamides; Z90.710 Acquired absence of both cervix and uterus; Z90.49 Acquired absence of other specified parts of digestive tract; Z95.818 Presence of other cardiac implants and grafts
CPT/HCPCS: 96372; 99283; J1100

== ENCOUNTER → 2020-04-01 | Outpatient (CLI) | payer MEDICARE ==
[~2020-04-01] MED LIST changes: -ASPI-555 PO; +ASPI-556 PO; -MECL-111 PO; +MECL-160 PO; -OMEP-50 PO; +OMEP20CA12 PO; +REGADENOSON 0.4 MG/5 ML PF SYG IVP SCH
== END | disposition home or self-care (01) ==
LOC: SHCH 09:00
PROVIDERS: ATTEND Internal Medicine Cardiovascular Disease
DX: I25.9 Chronic ischemic heart disease, unspecified (principal)
CPT/HCPCS: 78452; 93017; 96374; A9500 ×2; J2785

== ENCOUNTER → 2020-04-26 | Outpatient (CLI) | payer MEDICARE ==
[~2020-04-26] MED LIST changes: -REGADENOSON 0.4 MG/5 ML PF SYG IVP SCH
== END | disposition home or self-care (01) ==
LOC: RAH 10:59
PROVIDERS: ATTEND Internal Medicine Cardiovascular Disease
DX: I71.4 Abdominal aortic aneurysm, without rupture (principal); N18.3 Chronic kidney disease, stage 3 (moderate); I70.0 Atherosclerosis of aorta; N28.1 Cyst of kidney, acquired; M47.814 Spondylosis without myelopathy or radiculopathy, thoracic region; M25.78 Osteophyte, vertebrae; Z95.818 Presence of other cardiac implants and grafts
CPT/HCPCS: 71250

== ENCOUNTER 2020-06-21 10:09 | Inpatient (IN) | payer MEDICARE ==
[~2020-06-21] VITALS: Ht 154.9 cm; Wt 82.3 kg
[~2020-06-21 10:09] MED LIST changes: +AMLO-258 PO; -AMLO10TA7 PO
[2020-06-21 10:42] LABS: BASOPHILS % (AUTO) 1.3 % (0.0-5.0); EOSINOPHILS % (AUTO) 3.4 % (0.0-8.0); HEMATOCRIT 36.4 % (36-48); MEAN CORPUSCULAR HEMOGLOBIN 29.5 pg (27.0-33.0); MEAN CORPUSCULAR HGB CONC 32.1 g/dL (32.0-36.0); MEAN CORPUSCULAR VOLUME 91.9 fL (79-99); MONOCYTES % (AUTO) 6.4 % (3.0-13.0); NEUTROPHILS % (AUTO) 67.4 % (40.0-77.0); PLATELET COUNT (AUTO) 200 K/uL (130-400); RED BLOOD CELL COUNT(AUTO) 3.96 MIL/uL (4.00-5.50); RED CELL DISTRIBUTION WIDTH 13.5 % (11.0-15.5); WHITE BLOOD COUNT (AUTO) 8.5 K/uL (4.8-10.8)
[2020-06-21 10:48] LABS: CREATININE 1.2 mg/dL (0.5-1.5); POTASSIUM 4.1 mmol/L (3.5-5.1)
[2020-06-21 10:49] LABS: INR 0.93 (0.85-1.15); PARTIAL THROMBOPLASTIN TIME 28.6 SEC (26.3-35.5); PROTHROMBIN TIME 10.1 SEC (9.6-11.6)
[2020-06-21 10:53] LABS: ALBUMIN 3.3 g/dL (3.5-5.0); BILIRUBIN,TOTAL 0.5 mg/dL (0.2-1.0); TOTAL PROTEIN, SERUM 6.9 g/dL (6.0-8.3)
[2020-06-21 11:57] LABS: APPEARANCE,URINE Clear (CLEAR); BILIRUBIN,URINE Negative (NEGATIVE); COLOR,URINE Yellow (YELLOW); GLUCOSE, URINE (UA) Negative (NEGATIVE); KETONES,URINE Negative (NEGATIVE); LEUKOCYTE ESTERASE ,URINE Negative (NEGATIVE); NITRATE,URINE Negative (NEGATIVE); OCCULT BLOOD,URINE Negative (NEGATIVE); PROTEIN,URINE POS 2+ mg/dL (NEGATIVE); UROBILINOGEN,URINE 0.2 mg/dL (0.2-1.0)
[2020-06-21 12:05] LABS: AMPHET/METH SCREEN,URINE NEGATIVE (NEGATIVE); BARBITURATE SCREEN, URINE NEGATIVE (NEGATIVE); BENZODIAZEPINES SCREEN,URINE NEGATIVE (NEGATIVE); CANNABINOID SCREEN,URINE NEGATIVE (NEGATIVE); COCAINE SCREEN,URINE NEGATIVE (NEGATIVE); OPIATE SCREEN,URINE POSITIVE (NEGATIVE); PHENCYCLIDINE SCREEN,URINE NEGATIVE (NEGATIVE)
[2020-06-21 12:20] LABS: BACTERIA,URINE Rare /HPF (None Seen); RBC,URINE 0-1 /HPF (0-1); SQUAMOUS EPITHELIAL CELL,UR Rare /HPF (0-2); WBC,URINE 0-1 /HPF (0-1)
[2020-06-21] MEDS ORDERED: DIAZEPAM 5 MG/ML 2 ML SYG ONE (12:39)
[2020-06-21] MEDS ORDERED: HYDRALAZINE HCL 20 MG/ML VIAL IV PRN (18:00)
[2020-06-21] MEDS ORDERED: ONDANSETRON HCL 4 MG/2 ML VIAL IVP PRN (18:00)
[2020-06-21] MEDS ORDERED: DiphenhydrAMINE HCL 50 MG/ML VIAL IV PRN (18:00)
[2020-06-21] MEDS ORDERED: SIMVASTATIN 10 MG TABLET ONE (19:43)
[2020-06-21] MEDS ORDERED: ACETAMINOPHEN 325 MG TAB ONE (19:44)
[2020-06-21] MEDS ORDERED: DiphenhydrAMINE HCL 50 MG/ML VIAL ONE (20:46)
[2020-06-21] MEDS: SIMVASTATIN 20 MG TABLET PO SCH (21:00)
[2020-06-21] MEDS ORDERED: IOHEXOL-350 75 ML VIAL IV ONE (21:13)
[2020-06-21] MEDS ORDERED: IOHEXOL 350 MG/ML 100ML INFUS..BTL IV ONE (21:14)
[2020-06-22 03:42] VITALS: BP 156/43
[2020-06-22] MEDS: ACETAMINOPHEN 325 MG TAB PO PRN ×2 (05:03→19:57)
[2020-06-22 07:15] LABS: BASOPHILS % (AUTO) 1.2 % (0.0-5.0); HEMATOCRIT 36.3 % (36-48); LYMPHOCYTES % (AUTO) 23.3 % (21.0-51.0); MEAN CORPUSCULAR HEMOGLOBIN 29.3 pg (27.0-33.0); MEAN CORPUSCULAR HGB CONC 31.7 g/dL (32.0-36.0); MEAN CORPUSCULAR VOLUME 92.6 fL (79-99); MONOCYTES % (AUTO) 7.9 % (3.0-13.0); NEUTROPHILS % (AUTO) 62.8 % (40.0-77.0); PLATELET COUNT (AUTO) 196 K/uL (130-400); RED BLOOD CELL COUNT(AUTO) 3.92 MIL/uL (4.00-5.50); RED CELL DISTRIBUTION WIDTH 13.8 % (11.0-15.5); WHITE BLOOD COUNT (AUTO) 7.5 K/uL (4.8-10.8)
[2020-06-22 07:39] LABS: HEMOGLOBIN A1C 5.6 % (4.0-6.0)
[2020-06-22 07:45] LABS: BILIRUBIN,TOTAL 0.5 mg/dL (0.2-1.0); CREATININE 1.1 mg/dL (0.5-1.5); POTASSIUM 4.8 mmol/L (3.5-5.1); THYROID STIMULATING HORMONE 1.34 uIU/mL (0.36-3.74); TOTAL PROTEIN, SERUM 6.4 g/dL (6.0-8.3)
[2020-06-22 07:46] VITALS: BP 135/46
[2020-06-22] MEDS ORDERED: ASPIRIN 81MG TAB.CHEW PO SCH (09:00)
--- NOTE | 2020-06-22 09:20 | NUR ---
DYSPHAGIA EVAL COMPLETED. -S/S OF ASPIRATION AT THIS TIME. RECOMMEND REGULAR SOLIDS, THIN LIQUIDS, PILLS WHOLE WITH LIQUIDS TOLERATED. CARE REP REVIEW RESULTS AND RECOMMENDATIONS WITH PATIENT AND NURSE SORAYA. EDUCATION WAS PROVIDED TO PATIENT ABOUT RISKS AND CONSEQUENCES OF ASPIRATION. ALL QUESTIONS ANSWERED AT THIS TIME. Addendum: 06/22/[address] DELIA HUERTAS Amended: Links added.
[2020-06-22] MEDS ORDERED: GABA-529 PO ×2 (10:51→10:58)
[2020-06-22] MEDS ORDERED: CHOL100046 PO (10:58)
[2020-06-22] MEDS ORDERED: VITA100C24 PO (10:58)
[2020-06-22] MEDS ORDERED: CARV25TA PO (10:58)
[2020-06-22] MEDS ORDERED: LOSA50TA64 PO (10:58)
[2020-06-22] MEDS ORDERED: LUBI24CA2 PO (10:59)
[2020-06-22] MEDS ORDERED: LUBIPROSTONE 24 MCG CAP PO PRN (11:15)
[2020-06-22] MEDS ORDERED: ACETAMINOPHEN-CODEINE 300/30MG TAB PO PRN (11:15)
[2020-06-22 11:49] VITALS: BP 160/73
--- NOTE | 2020-06-22 14:10 | NUR ---
ДМИТРИЙP-IA-Met w/ pt. who resides at home; gama Vick resides in same household. Pt. is independent, no HH, Provider or DME. Pt. has cane. Pt. is decision maker. Pt. feels safe returning home and grandtr. Pratima Momin will provide transportation and assist as needed. Primary is Dr. Cordova; [facility] in [place]. Gama Vick/[phone] Grndtr Pratima Merrill/[phone] Addendum: 06/22/20 at 1654 by ANGELIA SOUSA SS Amended: Links added.
[2020-06-22] MEDS ORDERED: HYDRALAZINE HCL 20 MG/ML VIAL IV SCH (15:15)
[2020-06-22 15:20] VITALS: BP 181/66
[2020-06-22] MEDS: SIMVASTATIN 20 MG TABLET PO SCH (19:57)
[2020-06-22 20:28] VITALS: BP 193/50
[2020-06-22] MEDS ORDERED: LOSARTAN 50 MG TABLET PO SCH (21:00)
[2020-06-22] MEDS ORDERED: GABAPENTIN 100 MG CAPSULE PO SCH (21:00)
[2020-06-22] MEDS: CARVEDILOL 25 MG TABLET PO SCH (21:00)
[2020-06-22 23:25] VITALS: BP 156/48
[2020-06-23 03:20] VITALS: BP 186/48
[2020-06-23 07:23] VITALS: BP 197/69
[2020-06-23] MEDS: CARVEDILOL 25 MG TABLET PO SCH (07:56)
[2020-06-23] MEDS: ACETAMINOPHEN 325 MG TAB PO PRN (08:04)
[2020-06-23] MEDS ORDERED: FUROSEMIDE 20 MG TABLET PO SCH (09:00)
[2020-06-23] MEDS ORDERED: AMLODIPINE BESYLATE 5 MG TAB PO SCH (09:00)
[2020-06-23] MEDS ORDERED: DOCUSATE CALCIUM 240 MG CAP PO SCH (09:00)
[2020-06-23] MEDS ORDERED: VITAMIN E 400 UNIT CAPSULE PO SCH (09:00)
[2020-06-23] MEDS ORDERED: [UNRECOGNIZED DRUG - OTHER] PO SCH (09:00)
[2020-06-23] MEDS ORDERED: **HM** VIT D3 25MCG PO SCH (09:00)
[2020-06-23] MEDS ORDERED: ASPIRIN 81 MG EC TAB PO SCH (09:00)
[2020-06-23 11:20] VITALS: BP 123/48
--- NOTE | 2020-06-23 13:20 | NUR ---
FOLLOW UP COMPLETED. [employer] COORDINATED WITH NURSE BREWSTER. PER NURSE, NO CONCERNS AT THIS TIME WITH PATIENT'S DIET RECOMMENDATION. NOTIFY AS[employer] IF ANY CONCERNS ARISE. Addendum: 06/23/[address] KIYA Amended: Links added.
--- NOTE | 2020-06-23 15:05 | NUR ---
[id number] patient signed IM Letter, I faxed IM Letter to [phone] and placed in chart under consent tab.
[2020-06-23] MEDS ORDERED: ATOR40TA69 PO (16:10)
[2020-06-23 16:31] VITALS: BP 148/79
--- NOTE | 2020-06-23 19:14 | NUR ---
DISCHARGE INSTRUCTION PROVIDED TO PATIENT .INFORMED HER ALSO ON NEW SCRIPT TO DRY CLEANER AT HER PHARMACY FOR ATORVASTATIN AND INSTRUCTION AND SIDE EFFECT . PATIENT VERBALIZED, UNDERSTANDING
== END 2020-06-23 18:55 | disposition home or self-care (01) | DRG 69 ==
LOC: EDH 10:09 → OBSVTOIN 14:51 → EDHIP 14:51 → 4BH 06-22 02:55
PROVIDERS: ADMIT Hospitalist; ATTEND Hospitalist
DX: G45.9 Transient cerebral ischemic attack, unspecified (principal); E04.2 Nontoxic multinodular goiter; E11.22 Type 2 diabetes mellitus with diabetic chronic kidney disease; E89.0 Postprocedural hypothyroidism; I12.9 Hypertensive chronic kidney disease with stage 1 through stage 4 chronic kidney disease, or unspecified chronic kidney disease; I16.0 Hypertensive urgency; I35.0 Nonrheumatic aortic (valve) stenosis; M48.00 Spinal stenosis, site unspecified; N18.9 Chronic kidney disease, unspecified; Z79.84 Long term (current) use of oral hypoglycemic drugs; Z82.49 Family history of ischemic heart disease and other diseases of the circulatory system; Z83.3 Family history of diabetes mellitus; Z86.79 Personal history of other diseases of the circulatory system; Z90.710 Acquired absence of both cervix and uterus; Z95.2 Presence of prosthetic heart valve
CPT/HCPCS: 36415; 70450; 70496; 70498; 70551; 71045; 76536; 80053; 80061; 80305; 81001; 82550; 83036; 83721; 84443; 84484; 85025; 85610; 85730; 92610; 93005; 93306; 93356; 93880; G0378; J0360; J1200; J3360; Q9967

== ENCOUNTER 2020-10-14 14:25 | Inpatient (IN) | payer MEDICARE ==
[~2020-10-14] VITALS: Ht 157.5 cm; Wt 76.2 kg
[~2020-10-14 14:25] MED LIST changes: +ATOR40TA69 PO; -CARV12.511 PO; +CARV25TA PO; +CHOL100046 PO; -CHOL200012 PO; +GABA-529 PO; -LACT1CAP72 PO; +LACT1CAP81 PO; +LATA2.5D14 OP; -LATA2.5D2 OP; -LEVO250T2 PO; -LOSA100T58 PO; +LOSA50TA64 PO; -VITA100049 PO; +VITA100C26 PO
[2020-10-14 15:25] LABS: BASOPHILS % (AUTO) 1.4 % (0.0-5.0); EOSINOPHILS % (AUTO) 9.9 % (0.0-8.0); HEMATOCRIT 34.5 % (36-48); LYMPHOCYTES % (AUTO) 26.8 % (21.0-51.0); MEAN CORPUSCULAR HEMOGLOBIN 30.1 pg (27.0-33.0); MEAN CORPUSCULAR HGB CONC 31.9 g/dL (32.0-36.0); MEAN CORPUSCULAR VOLUME 94.5 fL (79-99); MONOCYTES % (AUTO) 5.9 % (3.0-13.0); NEUTROPHILS % (AUTO) 55.7 % (40.0-77.0); PLATELET COUNT (AUTO) 205 K/uL (130-400); RED BLOOD CELL COUNT(AUTO) 3.65 MIL/uL (4.00-5.50); RED CELL DISTRIBUTION WIDTH 13.4 % (11.0-15.5); WHITE BLOOD COUNT (AUTO) 7.7 K/uL (4.8-10.8)
[2020-10-14 15:30] LABS: APPEARANCE,URINE Cloudy (CLEAR); BILIRUBIN,URINE Negative (NEGATIVE); COLOR,URINE Yellow (YELLOW); GLUCOSE, URINE (UA) Negative (NEGATIVE); KETONES,URINE Negative (NEGATIVE); LEUKOCYTE ESTERASE ,URINE Trace (NEGATIVE); NITRATE,URINE Negative (NEGATIVE); OCCULT BLOOD,URINE Negative (NEGATIVE); PROTEIN,URINE Negative (NEGATIVE); UROBILINOGEN,URINE 0.2 mg/dL (0.2-1.0)
[2020-10-14 15:41] LABS: RBC,URINE 0-1 /HPF (0-1); WBC,URINE 0-1 /HPF (0-1)
[2020-10-14 15:42] LABS: BACTERIA,URINE Rare /HPF (None Seen); SQUAMOUS EPITHELIAL CELL,UR Few /HPF (0-2)
[2020-10-14 15:45] LABS: CREATININE 1.7 mg/dL (0.5-1.5); POTASSIUM 5.8 mmol/L (3.5-5.1)
[2020-10-14 15:52] LABS: ALBUMIN 3.9 g/dL (3.5-5.0); BILIRUBIN,TOTAL 0.3 mg/dL (0.2-1.0); MAGNESIUM 2.8 mg/dL (1.80-2.40); TOTAL PROTEIN, SERUM 7.6 g/dL (6.0-8.3)
[2020-10-14] MEDS ORDERED: DEXTROSE 50%-WATER 50 ML DISP.SYRIN IV ONE (16:47)
[2020-10-14] MEDS ORDERED: INSULIN HUMULIN R 100 UNIT/ML 3ML ONE (16:50)
[2020-10-14] MEDS ORDERED: KAYEXALATE 15GM/60ML ONE (19:34)
[2020-10-14] MEDS: INSULIN R PO SS1/2 SQ SCH (21:00)
[2020-10-14] MEDS ORDERED: ACETAMINOPHEN 325 MG TAB ONE (21:12)
[2020-10-14] MEDS ORDERED: ONDANSETRON 4MG INJ ONE (21:12)
[2020-10-14] MEDS ORDERED: CARVEDILOL 6.25 MG TABLET PO ONE (21:13)
[2020-10-15] MEDS ORDERED: SODIUM BICARB 50MEQ 50ML VIAL 50 ML ONE (05:01)
[2020-10-15] MEDS ORDERED: INSULIN HUMULIN R 100 UNIT/ML 3ML ONE (05:01)
[2020-10-15] MEDS ORDERED: DEXTROSE 50%-WATER 50 ML DISP.SYRIN IV ONE (05:02)
[2020-10-15 06:30] LABS: BASOPHILS % (AUTO) 1.3 % (0.0-5.0); EOSINOPHILS % (AUTO) 10.4 % (0.0-8.0); LYMPHOCYTES % (AUTO) 33.2 % (21.0-51.0); MEAN CORPUSCULAR HEMOGLOBIN 29.8 pg (27.0-33.0); MEAN CORPUSCULAR HGB CONC 31.8 g/dL (32.0-36.0); MEAN CORPUSCULAR VOLUME 93.9 fL (79-99); MONOCYTES % (AUTO) 8.6 % (3.0-13.0); NEUTROPHILS % (AUTO) 46.2 % (40.0-77.0); PLATELET COUNT (AUTO) 197 K/uL (130-400); RED BLOOD CELL COUNT(AUTO) 3.62 MIL/uL (4.00-5.50); RED CELL DISTRIBUTION WIDTH 13.6 % (11.0-15.5); WHITE BLOOD COUNT (AUTO) 6.1 K/uL (4.8-10.8)
[2020-10-15 06:45] LABS: ALBUMIN 3.8 g/dL (3.5-5.0); BILIRUBIN,TOTAL 0.4 mg/dL (0.2-1.0); CREATININE 1.8 mg/dL (0.5-1.5); POTASSIUM 4.9 mmol/L (3.5-5.1); TOTAL PROTEIN, SERUM 7.3 g/dL (6.0-8.3)
[2020-10-15] MEDS: INSULIN R PO SS1/2 SQ SCH ×4 (07:30→20:11)
[2020-10-15] MEDS ORDERED: ASPIRIN 81MG CHEW TAB ONE (08:00)
[2020-10-15] MEDS ORDERED: PANTOPRAZOLE 40 MG/VIAL ONE (08:00)
[2020-10-15] MEDS ORDERED: ACETAMINOPHEN 325 MG TAB ONE (08:23)
[2020-10-15] MEDS: PANTOPRAZOLE 40 MG TAB DR PO SCH (09:00)
[2020-10-15] MEDS: ASPIRIN 81MG CHEW TAB PO SCH (09:00)
[2020-10-15] MEDS ORDERED: ONDANSETRON 4MG INJ ONE (14:01)
[2020-10-15 15:28] VITALS: BP 139/66
[2020-10-15] MEDS ORDERED: ACETAMINOPHEN WITH CODEINE 1 TAB TAB PO SCH (16:15)
[2020-10-15 19:45] VITALS: BP 143/49
[2020-10-15] MEDS: CARVEDILOL 6.25 MG TABLET PO SCH (20:28)
[2020-10-15 23:55] VITALS: BP 129/47
[2020-10-16 04:49] LABS: BASOPHILS % (AUTO) 1.4 % (0.0-5.0); EOSINOPHILS % (AUTO) 10.5 % (0.0-8.0); HEMATOCRIT 33.6 % (36-48); LYMPHOCYTES % (AUTO) 35.4 % (21.0-51.0); MEAN CORPUSCULAR HEMOGLOBIN 29.9 pg (27.0-33.0); MEAN CORPUSCULAR HGB CONC 31.5 g/dL (32.0-36.0); MEAN CORPUSCULAR VOLUME 94.9 fL (79-99); MONOCYTES % (AUTO) 8.5 % (3.0-13.0); NEUTROPHILS % (AUTO) 43.9 % (40.0-77.0); PLATELET COUNT (AUTO) 194 K/uL (130-400); RED BLOOD CELL COUNT(AUTO) 3.54 MIL/uL (4.00-5.50); RED CELL DISTRIBUTION WIDTH 13.6 % (11.0-15.5); WHITE BLOOD COUNT (AUTO) 5.7 K/uL (4.8-10.8)
[2020-10-16 05:07] LABS: ALBUMIN 3.4 g/dL (3.5-5.0); BILIRUBIN,TOTAL 0.4 mg/dL (0.2-1.0); CREATININE 1.8 mg/dL (0.5-1.5); MAGNESIUM 2.5 mg/dL (1.80-2.40); PHOSPHORUS 4.6 mg/dL (2.5-4.9); POTASSIUM 4.6 mmol/L (3.5-5.1); TOTAL PROTEIN, SERUM 6.9 g/dL (6.0-8.3)
[2020-10-16] MEDS: INSULIN R PO SS1/2 SQ SCH ×4 (06:02→20:49)
[2020-10-16 07:07] VITALS: BP 156/48
[2020-10-16] MEDS: AMLODIPINE 5 MG TAB PO SCH (07:42)
[2020-10-16] MEDS: FOLIC ACID 1 MG TABLET PO SCH (07:42)
[2020-10-16] MEDS: FUROSEMIDE 20 MG TABLET PO SCH (07:42)
[2020-10-16] MEDS: CLOPIDOGREL 75MG TAB PO SCH (07:42)
[2020-10-16] MEDS: PANTOPRAZOLE 40 MG TAB DR PO SCH (07:43)
[2020-10-16] MEDS: CARVEDILOL 6.25 MG TABLET PO SCH ×2 (07:43→20:57)
[2020-10-16] MEDS: ASPIRIN 81MG CHEW TAB PO SCH (07:43)
[2020-10-16] MEDS: ACETAMINOPHEN WITH CODEINE 1 TAB TAB PO PRN ×2 (07:45→21:10)
[2020-10-16 10:37] VITALS: BP 152/48
[2020-10-16] MEDS: ONDANSETRON 4MG INJ IVP PRN (11:33)
[2020-10-16 15:41] VITALS: BP 129/40
[2020-10-16] MEDS: ACETAMINOPHEN 325 MG TAB PO PRN (18:30)
[2020-10-16 20:04] VITALS: BP 137/40
[2020-10-16 23:39] VITALS: BP 140/54
[2020-10-17 04:02] VITALS: BP 140/57
[2020-10-17 05:20] LABS: HEMATOCRIT 31.7 % (36-48); MEAN CORPUSCULAR HEMOGLOBIN 30.1 pg (27.0-33.0); MEAN CORPUSCULAR HGB CONC 31.9 g/dL (32.0-36.0); MEAN CORPUSCULAR VOLUME 94.3 fL (79-99); RED BLOOD CELL COUNT(AUTO) 3.36 MIL/uL (4.00-5.50); RED CELL DISTRIBUTION WIDTH 13.3 % (11.0-15.5); WHITE BLOOD COUNT (AUTO) 5.4 K/uL (4.8-10.8)
[2020-10-17 05:33] LABS: HEMOGLOBIN A1C 5.6 % (4.0-6.0)
[2020-10-17 05:40] LABS: % IRON SATURATION 34.6 % (22-44)
[2020-10-17 05:53] LABS: ALBUMIN 3.3 g/dL (3.5-5.0); BILIRUBIN,TOTAL 0.4 mg/dL (0.2-1.0); CREATININE 2.1 mg/dL (0.5-1.5); POTASSIUM 4.3 mmol/L (3.5-5.1); THYROID STIMULATING HORMONE 1.35 uIU/mL (0.36-3.74); TOTAL PROTEIN, SERUM 6.5 g/dL (6.0-8.3)
[2020-10-17] MEDS: INSULIN R PO SS1/2 SQ SCH ×5 (06:22→20:53)
[2020-10-17 08:00] VITALS: BP 152/58
[2020-10-17] MEDS: ASPIRIN 81MG CHEW TAB PO SCH (08:39)
[2020-10-17] MEDS: AMLODIPINE 5 MG TAB PO SCH (08:39)
[2020-10-17] MEDS: CARVEDILOL 6.25 MG TABLET PO SCH ×2 (08:39→20:53)
[2020-10-17] MEDS: PANTOPRAZOLE 40 MG TAB DR PO SCH (08:40)
[2020-10-17] MEDS: FOLIC ACID 1 MG TABLET PO SCH (08:40)
[2020-10-17] MEDS: CLOPIDOGREL 75MG TAB PO SCH (08:40)
[2020-10-17] MEDS: FUROSEMIDE 20 MG TABLET PO SCH (08:40)
[2020-10-17 11:46] VITALS: BP 107/23
[2020-10-17] MEDS: ACETAMINOPHEN 325 MG TAB PO PRN (14:05)
[2020-10-17 16:00] VITALS: BP 115/45
[2020-10-17] MEDS: ACETAMINOPHEN WITH CODEINE 1 TAB TAB PO PRN (17:37)
[2020-10-17] MEDS ORDERED: LACTULOSE 20 GM/30 ML UDCUP PO PRN (19:45)
[2020-10-17 20:24] VITALS: BP 115/52
[2020-10-17 23:39] VITALS: BP 143/59
[2020-10-18 03:44] VITALS: BP_SYST 113; BP_SYST 131; BP_SYST 132; BP_DIAS 48; BP_DIAS 54; BP_DIAS 61
[2020-10-18 04:17] LABS: HEMATOCRIT 33.5 % (36-48); MEAN CORPUSCULAR HEMOGLOBIN 30.3 pg (27.0-33.0); MEAN CORPUSCULAR HGB CONC 32.2 g/dL (32.0-36.0); MEAN CORPUSCULAR VOLUME 93.8 fL (79-99); RED BLOOD CELL COUNT(AUTO) 3.57 MIL/uL (4.00-5.50); RED CELL DISTRIBUTION WIDTH 13.4 % (11.0-15.5); WHITE BLOOD COUNT (AUTO) 7.3 K/uL (4.8-10.8)
[2020-10-18 04:41] LABS: POTASSIUM 4.9 mmol/L (3.5-5.1)
[2020-10-18] MEDS: INSULIN R PO SS1/2 SQ SCH ×4 (06:43→20:47)
[2020-10-18 07:56] VITALS: BP 118/49
[2020-10-18] MEDS ORDERED: CHOL40002 PO (08:08)
[2020-10-18] MEDS ORDERED: CARV6.25 PO (08:08)
[2020-10-18] MEDS ORDERED: VITA100051 PO (08:08)
[2020-10-18] MEDS ORDERED: ACET1TAB25 PO (08:08)
[2020-10-18] MEDS ORDERED: FURO20TA4 PO (08:08)
[2020-10-18] MEDS ORDERED: FERR324T4 PO (08:08)
[2020-10-18] MEDS ORDERED: CLOP75TA32 PO (08:08)
[2020-10-18] MEDS ORDERED: FOLI1TAB85 PO (08:08)
[2020-10-18] MEDS ORDERED: LUBI24CA2 PO (08:08)
[2020-10-18] MEDS ORDERED: CETI-89 PO (08:08)
[2020-10-18] MEDS ORDERED: FOLI0.4T6 PO (08:08)
[2020-10-18] MEDS ORDERED: VALS160T29 PO (08:08)
[2020-10-18] MEDS ORDERED: AMLO10TA4 PO (08:08)
[2020-10-18] MEDS ORDERED: OMEP20CA12 PO (08:08)
[2020-10-18] MEDS ORDERED: VITAD50000 PO (08:08)
[2020-10-18] MEDS ORDERED: CETIRIZINE HCL 5 MG TABLET PO SCH (09:00)
[2020-10-18] MEDS ORDERED: NON-FORMULARY MEDICATION 1 EACH (Folic Acid 1 MG) PO SCH (09:00)
[2020-10-18] MEDS ORDERED: NON-FORMULARY MEDICATION 1 EACH (Amlodipine Besylate (Norvasc) 10 MG) PO SCH (09:00)
[2020-10-18] MEDS ORDERED: LUBIPROSTONE 24 MCG CAP PO SCH (09:00)
[2020-10-18] MEDS ORDERED: NON-FORMULARY MEDICATION 1 EACH (Omeprazole 20 MG) PO SCH (09:00)
[2020-10-18] MEDS: **HM** VIT D3 1000 UNITS PO SCH (09:00)
[2020-10-18] MEDS ORDERED: CHOLECALCIFEROL 1000 UNIT PO SCH (09:00)
[2020-10-18] MEDS ORDERED: CARVEDILOL 6.25 MG TABLET PO SCH (09:00)
[2020-10-18] MEDS ORDERED: CETIRIZINE HCL 5 MG TABLET PO PRN (10:30)
[2020-10-18] MEDS ORDERED: LUBIPROSTONE 24 MCG CAP PO PRN (10:30)
[2020-10-18] MEDS: Vitamin B Complex/Vit C/Folic Acid PO SCH (10:32)
[2020-10-18] MEDS: FERROUS SULFATE 325 MG TABLET.DR PO SCH (10:32)
[2020-10-18] MEDS: VITAMIN E 400 UNIT CAPSULE PO SCH (10:33)
[2020-10-18] MEDS: FOLIC ACID 1 MG TABLET PO SCH (10:33)
[2020-10-18] MEDS: CLOPIDOGREL 75MG TAB PO SCH (10:34)
[2020-10-18] MEDS: AMLODIPINE 5 MG TAB PO SCH (10:34)
[2020-10-18] MEDS: ASPIRIN 81MG CHEW TAB PO SCH (10:34)
[2020-10-18] MEDS: PANTOPRAZOLE 40 MG TAB DR PO SCH (10:35)
[2020-10-18] MEDS: ACETAMINOPHEN WITH CODEINE 1 TAB TAB PO SCH ×2 (10:36→20:53)
[2020-10-18] MEDS: FUROSEMIDE 20 MG TABLET PO SCH (10:39)
[2020-10-18 11:46] VITALS: BP 156/80
[2020-10-18 16:00] VITALS: BP 136/41
[2020-10-18 19:40] VITALS: BP 148/41
[2020-10-18] MEDS: LOSARTAN 50 MG TABLET PO SCH (20:52)
[2020-10-18] MEDS ORDERED: LOSARTAN 100 MG TABLET PO SCH (21:00)
[2020-10-19] VITALS (11 sets, daily range): BP systolic 90–156; BP diastolic 32–61
[2020-10-19 05:24] LABS: BASOPHILS % (AUTO) 1.6 % (0.0-5.0); EOSINOPHILS % (AUTO) 8.6 % (0.0-8.0); HEMATOCRIT 31.9 % (36-48); MEAN CORPUSCULAR HEMOGLOBIN 30.1 pg (27.0-33.0); MEAN CORPUSCULAR VOLUME 94.1 fL (79-99); MONOCYTES % (AUTO) 10.1 % (3.0-13.0); NEUTROPHILS % (AUTO) 40.2 % (40.0-77.0); PLATELET COUNT (AUTO) 179 K/uL (130-400); RED BLOOD CELL COUNT(AUTO) 3.39 MIL/uL (4.00-5.50); RED CELL DISTRIBUTION WIDTH 13.4 % (11.0-15.5); WHITE BLOOD COUNT (AUTO) 6.4 K/uL (4.8-10.8)
[2020-10-19 05:28] LABS: CREATININE 2.2 mg/dL (0.5-1.5); POTASSIUM 4.8 mmol/L (3.5-5.1)
[2020-10-19] MEDS: INSULIN R PO SS1/2 SQ SCH ×4 (06:38→20:51)
[2020-10-19] MEDS: **HM** VIT D3 1000 UNITS PO SCH (09:00)
[2020-10-19] MEDS: AMLODIPINE 5 MG TAB PO SCH (09:34)
[2020-10-19] MEDS: FOLIC ACID 1 MG TABLET PO SCH (09:34)
[2020-10-19] MEDS: Vitamin B Complex/Vit C/Folic Acid PO SCH (09:34)
[2020-10-19] MEDS: PANTOPRAZOLE 40 MG TAB DR PO SCH (09:34)
[2020-10-19] MEDS: VITAMIN E 400 UNIT CAPSULE PO SCH (09:34)
[2020-10-19] MEDS: FERROUS SULFATE 325 MG TABLET.DR PO SCH (09:35)
[2020-10-19] MEDS: ASPIRIN 81MG CHEW TAB PO SCH (09:35)
[2020-10-19] MEDS: CLOPIDOGREL 75MG TAB PO SCH (09:35)
[2020-10-19] MEDS: ACETAMINOPHEN WITH CODEINE 1 TAB TAB PO SCH ×2 (09:36→20:50)
[2020-10-19] MEDS: ONDANSETRON 4MG INJ IVP PRN (12:05)
[2020-10-19] MEDS: LOSARTAN 50 MG TABLET PO SCH (20:50)
[2020-10-20 04:49] LABS: HEMATOCRIT 32.6 % (36-48); MEAN CORPUSCULAR HEMOGLOBIN 30.2 pg (27.0-33.0); MEAN CORPUSCULAR HGB CONC 31.9 g/dL (32.0-36.0); MEAN CORPUSCULAR VOLUME 94.8 fL (79-99); RED BLOOD CELL COUNT(AUTO) 3.44 MIL/uL (4.00-5.50); RED CELL DISTRIBUTION WIDTH 13.4 % (11.0-15.5)
[2020-10-20 05:03] LABS: CREATININE 2.4 mg/dL (0.5-1.5); POTASSIUM 4.9 mmol/L (3.5-5.1)
[2020-10-20] MEDS: INSULIN R PO SS1/2 SQ SCH ×3 (05:43→16:30)
[2020-10-20 06:05] VITALS: BP_SYST 109; BP_SYST 114; BP_DIAS 30; BP_DIAS 31
[2020-10-20 06:06] VITALS: BP 85/45
[2020-10-20 08:00] VITALS: BP 147/47
[2020-10-20] MEDS: ACETAMINOPHEN WITH CODEINE 1 TAB TAB PO SCH (09:00)
[2020-10-20] MEDS: AMLODIPINE 5 MG TAB PO SCH (09:00)
[2020-10-20] MEDS: **HM** VIT D3 1000 UNITS PO SCH (09:00)
[2020-10-20] MEDS: FERROUS SULFATE 325 MG TABLET.DR PO SCH (10:35)
[2020-10-20] MEDS: FUROSEMIDE 20 MG TABLET PO SCH (10:35)
[2020-10-20] MEDS: FOLIC ACID 1 MG TABLET PO SCH (10:35)
[2020-10-20] MEDS: Vitamin B Complex/Vit C/Folic Acid PO SCH (10:35)
[2020-10-20] MEDS: PANTOPRAZOLE 40 MG TAB DR PO SCH (10:35)
[2020-10-20] MEDS: VITAMIN E 400 UNIT CAPSULE PO SCH (10:35)
[2020-10-20] MEDS: CLOPIDOGREL 75MG TAB PO SCH (10:35)
[2020-10-20] MEDS: ASPIRIN 81MG CHEW TAB PO SCH (10:36)
[2020-10-20 12:11] VITALS: BP 147/47
[2020-10-20] MEDS ORDERED: ASPI-1005 PO (13:41)
[2020-10-20] MEDS ORDERED: LACT PO (13:41)
[2020-10-20 16:38] VITALS: BP 170/61
[2020-10-20 16:40] VITALS: BP_SYST 109; BP_SYST 138; BP_DIAS 45; BP_DIAS 53
== END 2020-10-20 16:42 | disposition home or self-care (01) | DRG 641 ==
LOC: EDH 14:25 → EDHIP 18:41 → 4CH 10-15 15:10
PROVIDERS: ADMIT Internal Medicine Nephrology; ATTEND Internal Medicine Nephrology
DX: E87.5 Hyperkalemia (principal); N18.4 Chronic kidney disease, stage 4 (severe); N17.9 Acute kidney failure, unspecified; D64.9 Anemia, unspecified; I12.9 Hypertensive chronic kidney disease with stage 1 through stage 4 chronic kidney disease, or unspecified chronic kidney disease; E11.22 Type 2 diabetes mellitus with diabetic chronic kidney disease; E11.51 Type 2 diabetes mellitus with diabetic peripheral angiopathy without gangrene; E78.5 Hyperlipidemia, unspecified; E89.0 Postprocedural hypothyroidism; G89.29 Other chronic pain; I25.10 Atherosclerotic heart disease of native coronary artery without angina pectoris; I65.21 Occlusion and stenosis of right carotid artery; M48.061 Spinal stenosis, lumbar region without neurogenic claudication; R00.1 Bradycardia, unspecified; T44.7X5A Adverse effect of beta-adrenoreceptor antagonists, initial encounter; Z82.49 Family history of ischemic heart disease and other diseases of the circulatory system; Z83.3 Family history of diabetes mellitus; Z86.79 Personal history of other diseases of the circulatory system; Z90.710 Acquired absence of both cervix and uterus; Z91.11 Patient's noncompliance with dietary regimen; Z95.1 Presence of aortocoronary bypass graft; Z95.3 Presence of xenogenic heart valve; Z95.5 Presence of coronary angioplasty implant and graft; Z88.5 Allergy status to narcotic agent; Z88.0 Allergy status to penicillin; Z88.2 Allergy status to sulfonamides; Z88.8 Allergy status to other drugs, medicaments and biological substances; Z91.041 Radiographic dye allergy status; Z90.49 Acquired absence of other specified parts of digestive tract; Y92.89 Other specified places as the place of occurrence of the external cause
CPT/HCPCS: 36415; 80048; 80053; 80061; 81001; 82948; 83036; 83540; 83550; 83735; 84100; 84443; 84484; 85025; 85027; 93005; C9113; G0378; J1815; J2405; J3490; J7070

== ENCOUNTER 2020-10-25 11:55 | Emergency (ER) | payer MEDICARE ==
[~2020-10-25 11:55] MED LIST changes: -ACET1TAB12 PO; +ACET1TAB25 PO; -AMLO-258 PO; +AMLO10TA4 PO; +ASPI-1005 PO; -ASPI-556 PO; -ATOR40TA69 PO; -CARV25TA PO; +CETI-89 PO; -CHOL100046 PO; +CHOL40002 PO; +CLOP75TA32 PO; -DOCU240C25 PO; +FERR324T4 PO; +FOLI0.4T2 PO; +FOLI1TAB85 PO; -GABA-529 PO; +LACT PO; -LACT1CAP81 PO; -LATA2.5D14 OP; -LOSA50TA64 PO; -MECL-160 PO; -NITR0.4T50 SL; +VALS160T29 PO; -VIT1TABL75 PO; +VITA100051 PO; -VITA100C26 PO; +VITAD50000 PO
[2020-10-25] MEDS ORDERED: ASPIRIN 325 MG TABLET ONE (12:47)
[2020-10-25 13:11] LABS: BASOPHILS % (AUTO) 1.8 % (0.0-5.0); EOSINOPHILS % (AUTO) 6.5 % (0.0-8.0); HEMATOCRIT 36.7 % (36-48); LYMPHOCYTES % (AUTO) 19.7 % (21.0-51.0); MEAN CORPUSCULAR HEMOGLOBIN 30.1 pg (27.0-33.0); MEAN CORPUSCULAR HGB CONC 32.4 g/dL (32.0-36.0); MEAN CORPUSCULAR VOLUME 92.9 fL (79-99); MONOCYTES % (AUTO) 6.5 % (3.0-13.0); NEUTROPHILS % (AUTO) 65.3 % (40.0-77.0); PLATELET COUNT (AUTO) 236 K/uL (130-400); RED BLOOD CELL COUNT(AUTO) 3.95 MIL/uL (4.00-5.50); RED CELL DISTRIBUTION WIDTH 13.3 % (11.0-15.5)
[2020-10-25 13:19] LABS: CREATININE 1.9 mg/dL (0.5-1.5); POTASSIUM 5.3 mmol/L (3.5-5.1)
[2020-10-25 13:21] LABS: INR 1.06 (0.85-1.15); PROTHROMBIN TIME 11.5 SEC (9.6-11.6)
[2020-10-25 13:23] LABS: ALBUMIN 3.8 g/dL (3.5-5.0); BILIRUBIN,TOTAL 0.4 mg/dL (0.2-1.0); PARTIAL THROMBOPLASTIN TIME 27.4 SEC (26.3-35.5); TOTAL PROTEIN, SERUM 7.5 g/dL (6.0-8.3)
[2020-10-25 13:37] LABS: B-TYPE NATRIURETIC PEPTIDE 121 pg/mL (0-100)
[2020-10-25] MEDS ORDERED: ACETAMINOPHEN-CODEINE 300/30MG TAB ONE (14:45)
== END 2020-10-25 16:00 | disposition home or self-care (01) ==
LOC: EDH 11:55
DX: R00.2 Palpitations (principal); R06.02 Shortness of breath; I12.9 Hypertensive chronic kidney disease with stage 1 through stage 4 chronic kidney disease, or unspecified chronic kidney disease; E11.22 Type 2 diabetes mellitus with diabetic chronic kidney disease; N18.9 Chronic kidney disease, unspecified; G89.29 Other chronic pain; M54.5 Low back pain; Z88.0 Allergy status to penicillin; Z88.1 Allergy status to other antibiotic agents; Z88.2 Allergy status to sulfonamides; Z90.49 Acquired absence of other specified parts of digestive tract; Z90.710 Acquired absence of both cervix and uterus; Z88.6 Allergy status to analgesic agent; Z91.041 Radiographic dye allergy status; Z98.890 Other specified postprocedural states
CPT/HCPCS: 36415; 71045; 80053; 82550; 83880; 84484; 85025; 85610; 85730; 93005

== ENCOUNTER 2020-11-15 10:34 | Inpatient (IN) | payer MEDICARE ==
[~2020-11-15] VITALS: Ht 157.5 cm; Wt 78.9 kg
[~2020-11-15 10:34] MED LIST changes: -FOLI0.4T2 PO; +FOLI0.4T6 PO
[2020-11-15] MEDS ORDERED: 0.9% NACL 500ML IV.SOLN 500 ML IV ONE (10:53)
[2020-11-15] MEDS ORDERED: DILTIAZEM 50MG VIAL IV ONE (10:58)
[2020-11-15 11:02] LABS: BASOPHILS % (AUTO) 0.7 % (0.0-5.0); EOSINOPHILS % (AUTO) 0.7 % (0.0-8.0); HEMATOCRIT 28.1 % (36-48); LYMPHOCYTES % (AUTO) 10.2 % (21.0-51.0); MEAN CORPUSCULAR HEMOGLOBIN 30.7 pg (27.0-33.0); MEAN CORPUSCULAR HGB CONC 33.1 g/dL (32.0-36.0); MEAN CORPUSCULAR VOLUME 92.7 fL (79-99); MONOCYTES % (AUTO) 8.1 % (3.0-13.0); NEUTROPHILS % (AUTO) 79.3 % (40.0-77.0); PLATELET COUNT (AUTO) 240 K/uL (130-400); RED BLOOD CELL COUNT(AUTO) 3.03 MIL/uL (4.00-5.50); WHITE BLOOD COUNT (AUTO) 13.3 K/uL (4.8-10.8)
[2020-11-15 11:17] LABS: CREATININE 2.1 mg/dL (0.5-1.5); POTASSIUM 4.8 mmol/L (3.5-5.1)
[2020-11-15 11:19] LABS: ALBUMIN 2.8 g/dL (3.5-5.0); BILIRUBIN,TOTAL 0.5 mg/dL (0.2-1.0)
[2020-11-15 11:33] LABS: INR 1.2 (0.85-1.15); PROTHROMBIN TIME 12.9 SEC (9.6-11.6)
[2020-11-15 11:34] LABS: PARTIAL THROMBOPLASTIN TIME 33.6 SEC (26.3-35.5)
[2020-11-15] MEDS ORDERED: CARVEDILOL 6.25 MG TABLET PO ONE (14:34)
[2020-11-15] MEDS: ENOXAPARIN SODIUM 80 MG/0.8 ML SQ SCH (17:00)
[2020-11-16] VITALS (8 sets, daily range): BP systolic 124–174; BP diastolic 42–71
[2020-11-16] MEDS ORDERED: ONDANSETRON 4MG INJ IVP PRN (01:45)
[2020-11-16 04:36] LABS: BASOPHILS % (AUTO) 0.6 % (0.0-5.0); EOSINOPHILS % (AUTO) 1.4 % (0.0-8.0); HEMATOCRIT 25.5 % (36-48); LYMPHOCYTES % (AUTO) 10.9 % (21.0-51.0); MEAN CORPUSCULAR HEMOGLOBIN 30.1 pg (27.0-33.0); MEAN CORPUSCULAR HGB CONC 31.8 g/dL (32.0-36.0); MEAN CORPUSCULAR VOLUME 94.8 fL (79-99); MONOCYTES % (AUTO) 8.2 % (3.0-13.0); NEUTROPHILS % (AUTO) 77.9 % (40.0-77.0); PLATELET COUNT (AUTO) 245 K/uL (130-400); RED BLOOD CELL COUNT(AUTO) 2.69 MIL/uL (4.00-5.50); RED CELL DISTRIBUTION WIDTH 13.2 % (11.0-15.5); WHITE BLOOD COUNT (AUTO) 13.4 K/uL (4.8-10.8)
[2020-11-16 05:10] LABS: HEMOGLOBIN A1C 5.3 % (4.0-6.0)
[2020-11-16 05:25] LABS: CREATININE 2.2 mg/dL (0.5-1.5); MAGNESIUM 2.2 mg/dL (1.80-2.40); PHOSPHORUS 4.9 mg/dL (2.5-4.9); POTASSIUM 5.2 mmol/L (3.5-5.1); THYROID STIMULATING HORMONE 0.55 uIU/mL (0.36-3.74)
[2020-11-16 05:31] LABS: TROPONIN I 5.3 ng/mL (0.00-0.06)
[2020-11-16] MEDS ORDERED: MORPHINE 2 MG SYG ONE (07:15)
[2020-11-16] MEDS ORDERED: NITROGLYCERIN 1GM OINT 1 INCH/1GM TD ONE (07:16)
[2020-11-16] MEDS ORDERED: ASPIRIN 325 MG TABLET ONE (07:17)
[2020-11-16] MEDS: ENOXAPARIN SODIUM 80 MG/0.8 ML SQ SCH ×4 (07:27→20:37)
[2020-11-16] MEDS: ASPIRIN 81MG CHEW TAB PO SCH ×3 (07:37→20:38)
[2020-11-16] MEDS: PANTOPRAZOLE 40 MG/VIAL IVP SCH (07:40)
[2020-11-16] MEDS: CARVEDILOL 6.25 MG TABLET PO SCH ×2 (07:41→20:38)
[2020-11-16] MEDS ORDERED: ASPIRIN 81MG CHEW TAB PO SCH (09:00)
[2020-11-16] MEDS: DRONEDARONE HYDROCHLORIDE 400 MG TABLET PO SCH (20:37)
[2020-11-17 03:49] VITALS: BP 128/45
[2020-11-17 04:24] LABS: BASOPHILS % (AUTO) 0.5 % (0.0-5.0); EOSINOPHILS % (AUTO) 1.5 % (0.0-8.0); HEMATOCRIT 24.6 % (36-48); LYMPHOCYTES % (AUTO) 10.6 % (21.0-51.0); MEAN CORPUSCULAR HEMOGLOBIN 29.5 pg (27.0-33.0); MEAN CORPUSCULAR HGB CONC 31.3 g/dL (32.0-36.0); MEAN CORPUSCULAR VOLUME 94.3 fL (79-99); MONOCYTES % (AUTO) 8.3 % (3.0-13.0); NEUTROPHILS % (AUTO) 77.5 % (40.0-77.0); PLATELET COUNT (AUTO) 275 K/uL (130-400); RED BLOOD CELL COUNT(AUTO) 2.61 MIL/uL (4.00-5.50); RED CELL DISTRIBUTION WIDTH 13.2 % (11.0-15.5); WHITE BLOOD COUNT (AUTO) 12.7 K/uL (4.8-10.8)
[2020-11-17 04:33] LABS: CREATININE 2.5 mg/dL (0.5-1.5)
[2020-11-17 08:13] VITALS: BP 162/40
[2020-11-17] MEDS: DRONEDARONE HYDROCHLORIDE 400 MG TABLET PO SCH ×2 (10:11→20:53)
[2020-11-17] MEDS: PANTOPRAZOLE 40 MG/VIAL IVP SCH (10:11)
[2020-11-17] MEDS: CARVEDILOL 6.25 MG TABLET PO SCH ×2 (10:12→20:53)
[2020-11-17] MEDS: 0.9% NACL 500ML IV.SOLN 500 ML IV SCH ×2 (10:13→17:15)
[2020-11-17] MEDS: ENOXAPARIN SODIUM 80 MG/0.8 ML SQ SCH ×2 (10:15→20:55)
[2020-11-17 12:00] VITALS: BP 144/42
[2020-11-17 12:20] LABS: BASOPHILS % (AUTO) 0.5 % (0.0-5.0); HEMATOCRIT 26.3 % (36-48); LYMPHOCYTES % (AUTO) 9.9 % (21.0-51.0); MEAN CORPUSCULAR HEMOGLOBIN 29.6 pg (27.0-33.0); MEAN CORPUSCULAR HGB CONC 31.6 g/dL (32.0-36.0); MEAN CORPUSCULAR VOLUME 93.9 fL (79-99); MONOCYTES % (AUTO) 6.4 % (3.0-13.0); NEUTROPHILS % (AUTO) 80.3 % (40.0-77.0); PLATELET COUNT (AUTO) 306 K/uL (130-400); RED CELL DISTRIBUTION WIDTH 13.1 % (11.0-15.5); WHITE BLOOD COUNT (AUTO) 14.4 K/uL (4.8-10.8)
[2020-11-17 16:00] VITALS: BP 132/63
[2020-11-17] MEDS ORDERED: PHARMACY COMMUNICATION MISC SCH (17:30)
[2020-11-17 20:00] VITALS: BP 156/48
[2020-11-18] VITALS (7 sets, daily range): BP systolic 108–165; BP diastolic 37–78
[2020-11-18 05:22] LABS: BASOPHILS % (AUTO) 0.3 % (0.0-5.0); EOSINOPHILS % (AUTO) 1.2 % (0.0-8.0); HEMATOCRIT 22.7 % (36-48); LYMPHOCYTES % (AUTO) 7.1 % (21.0-51.0); MEAN CORPUSCULAR HEMOGLOBIN 29.8 pg (27.0-33.0); MEAN CORPUSCULAR HGB CONC 31.7 g/dL (32.0-36.0); MEAN CORPUSCULAR VOLUME 93.8 fL (79-99); MONOCYTES % (AUTO) 7.4 % (3.0-13.0); NEUTROPHILS % (AUTO) 82.2 % (40.0-77.0); PLATELET COUNT (AUTO) 295 K/uL (130-400); RED BLOOD CELL COUNT(AUTO) 2.42 MIL/uL (4.00-5.50); RED CELL DISTRIBUTION WIDTH 13.2 % (11.0-15.5); WHITE BLOOD COUNT (AUTO) 14.6 K/uL (4.8-10.8)
[2020-11-18 05:33] LABS: CREATININE 2.6 mg/dL (0.5-1.5); PHOSPHORUS 3.4 mg/dL (2.5-4.9); POTASSIUM 4.8 mmol/L (3.5-5.1)
[2020-11-18] MEDS ORDERED: FUROSEMIDE 40MG VIAL IV SCH (08:45)
[2020-11-18] MEDS: DRONEDARONE HYDROCHLORIDE 400 MG TABLET PO SCH ×2 (09:59→21:00)
[2020-11-18] MEDS: CARVEDILOL 6.25 MG TABLET PO SCH ×2 (10:01→21:00)
[2020-11-18] MEDS: PANTOPRAZOLE 40 MG/VIAL IVP SCH (10:01)
[2020-11-18] MEDS ORDERED: 0.9% NACL 250ML 250 ML IV ONE (10:24)
[2020-11-18] MEDS ORDERED: COMPOUND IV MISC 1 EACH IVSOLN MISC PRN (12:45)
[2020-11-18] MEDS ORDERED: IRON SUCROSE COMPLEX 100 MG in 0.9%NACL 50ML 50 ML IV SCH (14:00)
[2020-11-19 03:48] VITALS: BP 149/33
[2020-11-19 05:02] LABS: BASOPHILS % (AUTO) 0.5 % (0.0-5.0); EOSINOPHILS % (AUTO) 1.5 % (0.0-8.0); HEMATOCRIT 29.5 % (36-48); MEAN CORPUSCULAR HEMOGLOBIN 28.9 pg (27.0-33.0); MEAN CORPUSCULAR HGB CONC 31.2 g/dL (32.0-36.0); MEAN CORPUSCULAR VOLUME 92.8 fL (79-99); MONOCYTES % (AUTO) 4.4 % (3.0-13.0); NEUTROPHILS % (AUTO) 82.1 % (40.0-77.0); PLATELET COUNT (AUTO) 316 K/uL (130-400); RED BLOOD CELL COUNT(AUTO) 3.18 MIL/uL (4.00-5.50); RED CELL DISTRIBUTION WIDTH 14.1 % (11.0-15.5); WHITE BLOOD COUNT (AUTO) 18.3 K/uL (4.8-10.8)
[2020-11-19 05:21] LABS: CREATININE 3.4 mg/dL (0.5-1.5); PHOSPHORUS 4.2 mg/dL (2.5-4.9); POTASSIUM 4.5 mmol/L (3.5-5.1)
[2020-11-19 07:56] VITALS: BP 135/27
[2020-11-19] MEDS: DRONEDARONE HYDROCHLORIDE 400 MG TABLET PO SCH (09:32)
[2020-11-19] MEDS: PANTOPRAZOLE 40 MG/VIAL IVP SCH (09:41)
[2020-11-19] MEDS: CARVEDILOL 6.25 MG TABLET PO SCH (09:41)
[2020-11-19] MEDS: IRON SUCROSE COMPLEX 100 MG in 0.9%NACL 50ML 50 ML IV SCH (10:52)
[2020-11-19 11:05] VITALS: BP 108/51
[2020-11-19] MEDS ORDERED: LACTULOSE 20 GM/30 ML UDCUP PO PRN (12:15)
[2020-11-19] MEDS ORDERED: MEGESTROL 400 MG/10 ML UDCUP PO SCH (14:00)
[2020-11-19 15:29] VITALS: BP 132/44
[2020-11-19 20:24] VITALS: BP 105/52
[2020-11-20] VITALS (8 sets, daily range): BP systolic 96–120; BP diastolic 34–61
[2020-11-20 06:17] LABS: HEMATOCRIT 25.9 % (36-48); MEAN CORPUSCULAR HGB CONC 32.4 g/dL (32.0-36.0); MEAN CORPUSCULAR VOLUME 92.5 fL (79-99); PLATELET COUNT (AUTO) 273 K/uL (130-400); WHITE BLOOD COUNT (AUTO) 17.3 K/uL (4.8-10.8)
[2020-11-20 06:29] LABS: CREATININE 3.8 mg/dL (0.5-1.5); PHOSPHORUS 4.2 mg/dL (2.5-4.9); POTASSIUM 4.2 mmol/L (3.5-5.1)
[2020-11-20 07:46] LABS: BAND NEUTROPHILS % (MANUAL) 3 % (0-2); LYMPHOCYTES % (MANUAL) 10 % (22-44); MAN.DIFF COMMENT-IMPRESSION MANUAL DIF; MONOCYTES % (MANUAL) 5 % (2-9); SEGMENTED NEUTROPHILS % 82 % (40-70)
[2020-11-20 07:47] LABS: PLATELET MORPHOLOGY COMMENT ADEQUATE
[2020-11-20] MEDS ORDERED: NON-FORMULARY MEDICATION 1 EACH (Folic Acid 1 MG) PO SCH (09:00)
[2020-11-20] MEDS ORDERED: NON-FORMULARY MEDICATION 1 EACH (Cetirizine HCl (Zyrtec) 10 MG) PO SCH (09:00)
[2020-11-20] MEDS ORDERED: CHOLECALCIFEROL 1000 UNIT PO SCH (09:00)
[2020-11-20] MEDS ORDERED: NON-FORMULARY MEDICATION 1 EACH (Vit B Cmplx 3/FA/Vit C/Biotin (Rena-Vite Rx Tablet) 1 EAC PO SCH (09:00)
[2020-11-20] MEDS: CHOLECALCIFEROL 1000 UNIT PO SCH (09:00)
[2020-11-20] MEDS: ASPIRIN 81MG CHEW TAB PO SCH (09:05)
[2020-11-20] MEDS: PANTOPRAZOLE 40 MG/VIAL IVP SCH (09:05)
[2020-11-20] MEDS: FOLIC ACID 1 MG TABLET PO SCH (09:05)
[2020-11-20] MEDS: CLOPIDOGREL 75MG TAB PO SCH (09:06)
[2020-11-20] MEDS: CARVEDILOL 6.25 MG TABLET PO SCH (09:06)
[2020-11-20] MEDS: Vitamin B Complex/Vit C/Folic Acid PO SCH (09:06)
[2020-11-20] MEDS: CETIRIZINE HCL 5 MG TABLET PO SCH (09:06)
[2020-11-20] MEDS: MEGESTROL 400 MG/10 ML UDCUP PO SCH (09:07)
[2020-11-20] MEDS: DRONEDARONE HYDROCHLORIDE 400 MG TABLET PO SCH (09:20)
[2020-11-20] MEDS: IRON SUCROSE COMPLEX 100 MG in 0.9%NACL 50ML 50 ML IV SCH (09:20)
[2020-11-20] MEDS ORDERED: NITROGLYCERIN 0.4 MG SL TAB SL PRN (20:30)
[2020-11-20] MEDS: NITROGLYCERIN 1GM OINT 1 INCH/1GM TD SCH (21:00)
[2020-11-20] MEDS ORDERED: MAG/ALUM/SIMETH 30 ML UDCUP PO SCH (21:40)
[2020-11-21] VITALS: BP 100/30
[2020-11-21 04:00] VITALS: BP 106/30
[2020-11-21 05:22] LABS: HEMATOCRIT 26.6 % (36-48); MEAN CORPUSCULAR HEMOGLOBIN 29.6 pg (27.0-33.0); MEAN CORPUSCULAR HGB CONC 31.6 g/dL (32.0-36.0); MEAN CORPUSCULAR VOLUME 93.7 fL (79-99); PLATELET COUNT (AUTO) 272 K/uL (130-400); RED BLOOD CELL COUNT(AUTO) 2.84 MIL/uL (4.00-5.50); RED CELL DISTRIBUTION WIDTH 14.2 % (11.0-15.5); WHITE BLOOD COUNT (AUTO) 18.8 K/uL (4.8-10.8)
[2020-11-21 05:52] LABS: CREATININE 4.9 mg/dL (0.5-1.5); POTASSIUM 4.6 mmol/L (3.5-5.1)
[2020-11-21 06:09] LABS: BAND NEUTROPHILS % (MANUAL) 3 % (0-2); BASOPHILS % (MANUAL) 2 % (0-2); EOSINOPHILS % (MANUAL) 4 % (1-6); LYMPHOCYTES % (MANUAL) 5 % (22-44); MAN.DIFF COMMENT-IMPRESSION MANUAL DIFFERENTIAL; MONOCYTES % (MANUAL) 3 % (2-9); PLATELET MORPHOLOGY COMMENT ADEQUATE; SEGMENTED NEUTROPHILS % 83 % (40-70)
[2020-11-21 08:03] VITALS: BP 102/44
[2020-11-21] MEDS: CHOLECALCIFEROL 1000 UNIT PO SCH (09:00)
[2020-11-21] MEDS: ISOSORBIDE MONO 30MG SR TAB PO SCH (09:00)
[2020-11-21] MEDS ORDERED: ISOSORBIDE MONO 30MG SR TAB PO SCH (09:00)
[2020-11-21] MEDS: PANTOPRAZOLE 40 MG/VIAL IVP SCH (09:13)
[2020-11-21] MEDS: CLOPIDOGREL 75MG TAB PO SCH (09:14)
[2020-11-21] MEDS: CARVEDILOL 6.25 MG TABLET PO SCH (09:16)
[2020-11-21] MEDS: Vitamin B Complex/Vit C/Folic Acid PO SCH (09:16)
[2020-11-21] MEDS: CETIRIZINE HCL 5 MG TABLET PO SCH (09:16)
[2020-11-21] MEDS: DRONEDARONE HYDROCHLORIDE 400 MG TABLET PO SCH (09:16)
[2020-11-21] MEDS: MEGESTROL 400 MG/10 ML UDCUP PO SCH (09:16)
[2020-11-21] MEDS: FOLIC ACID 1 MG TABLET PO SCH (09:16)
[2020-11-21] MEDS: ASPIRIN 81MG CHEW TAB PO SCH (09:16)
[2020-11-21] MEDS: IRON SUCROSE COMPLEX 100 MG in 0.9%NACL 50ML 50 ML IV SCH (09:18)
[2020-11-21 11:30] VITALS: BP 94/31
[2020-11-21 16:25] VITALS: BP 94/33
[2020-11-21] MEDS: ACETAMINOPHEN WITH CODEINE 1 TAB TAB PO PRN (18:44)
[2020-11-21 20:16] VITALS: BP 104/43
[2020-11-22] VITALS (12 sets, daily range): BP systolic 62–136; BP diastolic 30–74
[2020-11-22] MEDS: NITROGLYCERIN 1GM OINT 1 INCH/1GM TD SCH ×2 (08:15→21:00)
[2020-11-22] MEDS: ASPIRIN 81MG CHEW TAB PO SCH (09:40)
[2020-11-22] MEDS: CETIRIZINE HCL 5 MG TABLET PO SCH (09:40)
[2020-11-22] MEDS: DRONEDARONE HYDROCHLORIDE 400 MG TABLET PO SCH (09:40)
[2020-11-22] MEDS: MEGESTROL 400 MG/10 ML UDCUP PO SCH (09:41)
[2020-11-22] MEDS: PANTOPRAZOLE 40 MG/VIAL IVP SCH (09:41)
[2020-11-22] MEDS: CARVEDILOL 6.25 MG TABLET PO SCH (09:42)
[2020-11-22] MEDS: Vitamin B Complex/Vit C/Folic Acid PO SCH (09:42)
[2020-11-22] MEDS: CLOPIDOGREL 75MG TAB PO SCH (09:42)
[2020-11-22] MEDS: FOLIC ACID 1 MG TABLET PO SCH (09:42)
[2020-11-22] MEDS: ISOSORBIDE MONO 30MG SR TAB PO SCH (09:43)
[2020-11-22] MEDS: IRON SUCROSE COMPLEX 100 MG in 0.9%NACL 50ML 50 ML IV SCH (09:45)
[2020-11-22] MEDS: CHOLECALCIFEROL 1000 UNIT PO SCH (09:46)
[2020-11-22 12:01] LABS: MEAN CORPUSCULAR HEMOGLOBIN 30.3 pg (27.0-33.0); MEAN CORPUSCULAR HGB CONC 33.3 g/dL (32.0-36.0); MEAN CORPUSCULAR VOLUME 90.9 fL (79-99); RED BLOOD CELL COUNT(AUTO) 2.97 MIL/uL (4.00-5.50); RED CELL DISTRIBUTION WIDTH 14.6 % (11.0-15.5); WHITE BLOOD COUNT (AUTO) 21.9 K/uL (4.8-10.8)
[2020-11-22 12:15] LABS: ALBUMIN 1.9 g/dL (3.5-5.0); BILIRUBIN,TOTAL 0.3 mg/dL (0.2-1.0); CREATININE 6.6 mg/dL (0.5-1.5); TOTAL PROTEIN, SERUM 5.8 g/dL (6.0-8.3)
[2020-11-22] MEDS: ACETAMINOPHEN WITH CODEINE 1 TAB TAB PO PRN (18:01)
[2020-11-22] MEDS ORDERED: CEFTRIAXONE 1G VIAL IVP SCH (20:00)
[2020-11-22] MEDS ORDERED: MAGNESIUM 2GM PREMIX 50ML 50 ML IV ONE (23:10)
[2020-11-22] MEDS ORDERED: EPINEPHRINE PF 1MG AMP ONE (23:22)
[2020-11-22] MEDS ORDERED: EPINEPHRINE 1MG SYG 10ML ONE (23:25)
[2020-11-22] MEDS ORDERED: ETOMIDATE 20MG VIAL IVP ONE (23:43)
[2020-11-22] MEDS ORDERED: SUCCINYLCHOLINE CHLORIDE 20 MG/ML 10 ML VIAL IVP ONE (23:43)
== END 2020-11-22 23:44 | disposition expired ==
LOC: EDH 10:34 → EDHIP 13:00 → 4CH 11-16 01:10
PROVIDERS: ADMIT Internal Medicine Nephrology; ATTEND Internal Medicine Nephrology
PROC: 30233N1 Transfusion of Nonautologous Red Blood Cells into Peripheral Vein, Percutaneous Approach (ICD-10-PCS; principal; 2020-11-18)
PROC: 5A12012 Performance of Cardiac Output, Single, Manual (ICD-10-PCS; 2020-11-22)
PROC: 0BH17EZ Insertion of Endotracheal Airway into Trachea, Via Natural or Artificial Opening (ICD-10-PCS; 2020-11-22)
DX: I21.9 Acute myocardial infarction, unspecified (principal); N18.6 End stage renal disease; I12.0 Hypertensive chronic kidney disease with stage 5 chronic kidney disease or end stage renal disease; N17.9 Acute kidney failure, unspecified; I48.0 Paroxysmal atrial fibrillation; I25.10 Atherosclerotic heart disease of native coronary artery without angina pectoris; I71.4 Abdominal aortic aneurysm, without rupture; D64.9 Anemia, unspecified; D72.829 Elevated white blood cell count, unspecified; E11.22 Type 2 diabetes mellitus with diabetic chronic kidney disease; E78.5 Hyperlipidemia, unspecified; G89.29 Other chronic pain; I35.0 Nonrheumatic aortic (valve) stenosis; K59.00 Constipation, unspecified; Z79.02 Long term (current) use of antithrombotics/antiplatelets; Z79.899 Other long term (current) drug therapy; Z86.79 Personal history of other diseases of the circulatory system; Z88.0 Allergy status to penicillin; Z88.1 Allergy status to other antibiotic agents; Z88.2 Allergy status to sulfonamides; Z90.710 Acquired absence of both cervix and uterus; Z95.1 Presence of aortocoronary bypass graft; Z95.3 Presence of xenogenic heart valve; Z95.5 Presence of coronary angioplasty implant and graft; Z99.2 Dependence on renal dialysis; I65.21 Occlusion and stenosis of right carotid artery; Z91.041 Radiographic dye allergy status; Z90.49 Acquired absence of other specified parts of digestive tract; I46.9 Cardiac arrest, cause unspecified; I95.9 Hypotension, unspecified
CPT/HCPCS: 31500; 36415; 36430; 71045; 76770; 80048; 80053; 80061; 82270; 82550; 83036; 83735; 83874; 84100; 84443; 84484; 85025; 85027; 85610; 85730; 86850; 86900; 86901; 86923; 87040; 87077; 87186; 92950; 93005; 93306; 93356; 97039; C9113; G0378; J0171; J0330; J0696; J1650; J1756; J1940; J2405; J3475; J3490; J7040; J7050; P9016